=== PATIENT | female | born 2000 | race Caucasian/White ===

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

== ENCOUNTER 2021-06-27 20:01 | Emergency (ER) | payer OTHER, SELFPAY ==
--- NOTE | 2021-06-27 20:04 | ED.GENADUL_ITS ---
Discharge Plan Disposition Patient Disposition: HOME Condition: Improving Discharge Details Clinical Impression: Ovarian cyst Primary Care Provider: Jessica Polanco ED Provider: Brianna Pride Home Meds and New Rx's Prescriptions: Continued Mirena 20 mcg/24 hours (5 yrs) 52 mg intrauterine device 1 device IY ONCE Qty: 1 RF: 0 propranolol 10 mg tablet 10 mg PO BID Qty: 60 RF: 5 bupropion HCl [Wellbutrin XL] 150 mg tablet extended release 24 hr 150 mg PO QAM Qty: 60 RF: 3 spironolactone 50 mg tablet 50 mg PO DAILY Qty: 60 RF: 2 Linzess 72 mcg capsule 72 mcg PO DAILY RF: 0 sertraline [Zoloft] 25 mg Tablet 25 mg PO DAILY RF: 0 Discharge Instructions Instructions: Ovarian Cyst (ED) Additional Instructions: Your ultrasound today showed evidence of a right ovarian cyst. Your lab work today is reassuring and shows no evidence of acute concerning findings. Drink plenty of fluids and get plenty of rest. Alternate tylenol and motrin as needed and directed for pain. Take the oxycodone for pain not relieved with Tylenol or Motrin Take the Zofran as needed and directed for nausea and vomiting. Call [facility] tomorrow morning to schedule a follow-up appointment for reevaluation. Return immediately to the emergency department if you develop any worsening or new concerning symptoms. Stand Alone Forms: Work Release Referrals: [facility] [Provider Group] Discharge Data Discharge Physician: Brianna Pride Medical Decision Making 21-year-old female with a history of appendectomy presents with right lower quadrant abdominal pain and nausea for the past few days. Vitals within normal limits. Patient appears uncomfortable but nontoxic. She has tenderness extending from her right upper down the right lower quadrant. There is no distention, rebound or guarding. Differential diagnosis includes ovarian cyst, UTI, ovarian torsion, viral process, etc. History and presentation does not appear consistent with PID or BV as she denies any change in her normal discharge or any significant suprapubic pain. Patient was offered pelvic exam but states she can follow-up with [facility] for this if symptoms change. Will place an IV, bolus IV fluids, screening labs, urinalysis and attempt to obtain pelvic ultrasound. We will give a small dose of Toradol as she received ibuprofen at home 3.5 hours ago. Ultrasound is available to come in. Urine test negative. Labs reviewed and unremarkable. Normal white blood cell count and electrolytes. Urinalysis negative. Patient reassessed and pain not improved. Will give a dose of morphine and reassess. Pelvic and transvaginal ultrasound notes: IMPRESSION: 5 x 5 by 6 cm cystic structure within the right ovary as described. Despite the size favor this is a benign physiologic follicle. Morphology less suggestive of an endometrioma. Follow-up is recommended to assess resolution. No ovarian torsion. Patient reassessed and she felt much better. She endorsed some nausea and was given a dose of Zofran ODT. Patient advised to follow-up with [facility] for further evaluation and for consideration for repeat ultrasound if indicated Usual and customary return precautions given prior to discharge. Medical Records Medical records reviewed: Yes I reviewed the patient's medical records. Imaging Data Radiologic Study: Radiologist's impression: US Pelvis Complete, Transabdominal and US Pelvis, Transvaginal and US Duplex Artery and Vein, Ovaries, Complete Exam date and time: 06/27/2021 20:47 Age: 21 years old Clinical indication: Abdominal pain; Right lower quadrant; Patient HX: HX ovarian cysts TECHNIQUE: Imaging protocol: Real-time transabdominal and transvaginal pelvic ultrasound (complete) with image documentation. Transvaginal imaging was used for better evaluation of the endometrium, adnexa, and/or cervix. Real-time duplex ultrasound scan of the arterial and venous flow of the ovaries with B-mode, color Doppler flow and spectral waveform analysis. COMPARISON: CT ABDOMEN PELVIS W 09/05/2020 23:24 FINDINGS: Uterus: Normal myometrium and endometrium for age. Right ovary/adnexa: Within the right ovary is a predominantly simple appearing 5 x 5 by 6 cm cystic structure. There is a single peripheral echogenic structure measuring 6 mm. Normal arterial and venous waveforms in the right ovary. Left ovary/adnexa: Ovary is normal. No mass. Normal ovarian blood flow. Intraperitoneal space: Small cul-de-sac free fluid within physiologic limits. Urinary bladder: Normal. Right kidney: No right hydronephrosis. Left kidney: No left hydronephrosis. IMPRESSION: 5 x 5 by 6 cm cystic structure within the right ovary as described. Despite the size favor this is a benign physiologic follicle. Morphology less suggestive of an endometrioma. Follow-up is recommended to assess resolution. No ovarian torsion. Lab Data Lab results reviewed: Yes I reviewed the patient's lab results. Labs: Laboratory Tests Range/Units 06/27/21 06/27/21 06/27/21 20:05 20:30 20:30 WBC (4.4-10.8) 10^3/uL 9.35 RBC (3.93-5.22) 10^6/uL 4.78 Hgb (11.2-15.7) g/dL 13.3 Hct (36.0-46.0) % 42.2 MCV (80-95) fL 88.3 MCH (27.0-33.0) pg 27.8 MCHC (32.0-36.0) % 31.5 L RDW (11.7-14.6) % 12.7 Plt Count (130-400) 10^3/uL 337 MPV (8.0-11.0) fL 10.0 Immature Gran % 0.2 Neutrophils % 60.1 Lymphocytes % 30.5 Monocytes % 7.2 Eosinophils % 1.4 Basophils % 0.6 Nucleated RBC % % 0 Absolute Neutrophils (1.2-6.7) 10^3/uL 5.62 Absolute Lymphocytes (1.2-3.4) 10^3/uL 2.85 Absolute Monocytes (0.1-0.8) 10^3/uL 0.67 Absolute Eosinophils (0.0-0.7) 10^3/uL 0.13 Absolute Basophils (0.0-0.2) 10^3/uL 0.06 Sodium (136-145) mmol/L 139 Potassium (3.5-5.1) mmol/L 3.6 Chloride (98-107) mmol/L 103 Carbon Dioxide (21.0-32.0) mmol/L 27.3 Anion Gap (3-11) mmol/L 8.7 BUN (7-18) mg/dL 10 Creatinine (0.55-1.02) mg/dL 0.6 Estimated GFR/1.73 m2 (mL/min/1.73m2) >= 60.00 Glucose (74-106) mg/dL 77 Calcium (8.5-10.1) mg/dL 8.7 Total Bilirubin (0.2-1.0) mg/dL 0.3 AST (15-37) U/L 16 ALT (14-59) U/L 24 Alkaline Phosphatase (46-116) U/L 85 Total Protein (6.4-8.2) g/dL 7.8 Albumin (3.4-5.0) g/dL 4.3 Lipase (73-393) U/L 113 Urine Color (Yellow) Yellow Urine Clarity (Clear) Clear Urine pH (5-8) 7.0 Ur Specific [place] (1.005-1.025) 1.020 Urine Protein (Negative) mg/dL Negative Urine Ketones (Negative) mg/dL Negative Urine Blood (Negative) Negative Urine Nitrite (Negative) Negative Urine Bilirubin (Negative) Negative Urine Urobilinogen (Up TO 0.2) EU/dL 0.2 Ur Leukocyte Esterase (Negative) Negative Urine Glucose (Negative) mg/dL Negative HPI General Mode of arrival: ambulatory . Date/Time Provider Initiated Documentation: 06/27/21 20:02 . Limitations to Documentation: no limitations . Information obtained by: patient . HPI Narrative: Pt is a 21yo F with a history of appendectomy in August 2020 presents for right lower quadrant abdominal pain and nausea for the past 2 days. She states the pain feels achy and is currently 7/10. Patient states she has had an ovarian cyst in the past and states her pain feels similar to that except for having the nausea and low-grade fever today. She states the pain has been constant but worse with certain positions and movement. She admits to some nausea but denies any vomiting, diarrhea or urinary symptoms. She states she has been having normal bowel movements. She took Tylenol at 6:30 PM and ibuprofen at 5 PM tonight without relief. Related Data Home Medications Medication Instructions Recorded Confirmed levonorgestrel 20 mcg/24 hours (7 1 device IY ONCE #1 each 10/14/18 06/27/21 yrs) 52 mg intrauterine device propranolol 10 mg tablet 10 mg PO BID #60 tab 07/25/20 01/11/21 bupropion HCl 150 mg 24 hr tablet, 150 mg PO QAM #60 tab 02/09/21 extended release spironolactone 50 mg tablet 50 mg PO DAILY #60 tab 06/06/21 06/27/21 Linzess 72 mcg PO DAILY 06/27/21 06/27/21 sertraline [Zoloft] 25 mg PO DAILY 06/27/21 06/27/21 Previous Rx's Medication Instructions Recorded levonorgestrel 20 mcg/24 hours (7 1 device IY ONCE #1 each 10/14/18 yrs) 52 mg intrauterine device propranolol 10 mg tablet 10 mg PO BID #60 tab 07/25/20 bupropion HCl 150 mg 24 hr tablet, 150 mg PO QAM #60 tab 02/09/21 extended release spironolactone 50 mg tablet 50 mg PO DAILY #60 tab 06/06/21 Allergies Allergy/AdvReac Type Severity Reaction Status Date / Time No Known Allergies Allergy Verified 06/27/21 20:18 General CONG: 3 Review of Systems All systems reviewed & are unremarkable except as noted in HPI and below Constitutional Constitutional: Reports as per HPI, Denies chills and Denies fever(s) Eyes Eyes: Denies blurry vision ENT Ears, Nose, Mouth, and Throat: Denies dizziness, Denies sore throat and Denies throat swelling Cardiovascular Cardiovascular: Denies chest pain and Denies dyspnea Respiratory Respiratory: Denies cough and Denies dyspnea Gastrointestinal Gastrointestinal: Reports abdominal pain, Denies diarrhea, Reports nausea and Denies vomiting Genitourinary Genitourinary: Denies hematuria and Denies dysuria Musculoskeletal Musculoskeletal: Denies back pain and Denies numbness Integumentary/Breasts Skin/Breast: Denies lesions and Denies rash Neurologic Neurologic: Denies dizziness, Denies localized weakness and Denies numbness Allergic/Immunologic Allergic/Immunologic: Denies throat swelling PFSH All Active Problems (Updated 06/27/21 @ 22:10 by Brianna Pride DO) Ovarian cyst (Acute) Constipation (Chronic) [facility] Migraine headache with aura (Acute) Insomnia (Acute) Frequent headaches (Acute) Orthostasis (Acute) Contraception (Acute 11/28/15) Mirena IUD inserted 09/03/18 Medical History (Updated 06/27/21 @ 22:10 by Brianna Pride DO) Acne (04/04/15) mod/severe inflammatroy Anxiety and depression Body mass index, pediatric, 5th percentile to less than 85th percentile for age (04/04/15) Chronic constipation Contraception management OCPs, 11/2015 Nexplanon, Nexplanon removed and Mirena inserted 09/03/18 Croup Febrile convulsion X 1 AGE 19 MOS H/O appendicitis Headache Routine child health exam (12/15/12) Syncope [place] [facility] normal Holter monitor likely orthostasis related no follow up necessary Urinary incontinence Surgical History (Updated 06/26/21 @ 16:02 by Amisha Fitch RN) Acute appendicitis (~08/2020) H/O nasal septoplasty (~2020) History of tonsillectomy (~07/2020) Family History (Updated 06/26/21 @ 16:02 by Amisha Fitch RN) Mother Diabetes Hypertension Depression Father Healthy adult Other Personal history of malignant neoplasm MGM- skin cancer Sister Diabetes Asthma Anxiety Depression Social History (Updated 06/26/21 @ 12:45 by Marguerite Christina) Smoking/Tobacco Use Status: Never Smoking risk assessment performed?: Yes Alcohol Intake: never Drug use: Never Substance use type: does not use Adopted: No Caregiver/Support person: No Foster care: No Housing: apartment Pets and animals: Yes Pets and animals: cat(s) and dog(s) Do you think of yourself as: straight/heterosexual Current gender identity: female Do you feel safe in your relationship?: Yes Female Reproductive History Menstrual control method: progestin IUCD History History 0 Para Hx # Term Pregnancies Multiple births Hx # Pregnancies Ectopic pregnancies AB induced Hx Number of Living Children AB spontaneous Exam Const General: cooperative, healthy appearing and no acute distress HENMT Head: normal to inspection Face and sinus: normal facial exam Eyes General: appearance normal, both eyes and all related structures EOM: EOM intact bilaterally Neck Neck: normal visual inspection and No submandibular swelling Lymphatic: no lymphadenopathy noted Chest Chest: normal inspection of the chest and no tenderness Resp Effort & Inspection: normal respiratory effort and able to speak in complete sentences Auscultation: clear to auscultation bilaterally Cardio Rate: regular rate Rhythm: regular rhythm GI Inspection: normal to inspection Palpation: soft, not firm, not rigid and tender in the RLQ and in the RUQ Auscultation: hypoactive bowel sounds Back/Spine/Pelvis Back: no CVA tenderness Skin General skin exam: no rashes or lesions noted Neuro General: patient alert, patient awake and patient oriented x3 Cognition: normal cognition Speech: speech normal Motor: muscle tone normal throughout Sensory Exam: no sensory deficits noted Extrem General: normal to inspection, full ROM, capillary refill normal, no calf tenderness bilaterally and no edema Psych Appearance: grossly normal Mental Status: mental status grossly normal Speech and Movement: speech and movement normal Affect: normal affect
[2021-06-27 20:10] VITALS: BP 122/71; PULSE 85; RESP 18; TEMP 37.1; O2SAT 99
[2021-06-27 20:18] LABS: Bilirubin Negative (Negative); Blood Negative (Negative); Clarity Clear (Clear); Glucose Negative (Negative); Ketones Negative (Negative); Leukocyte Esterase Negative (Negative); Nitrite Negative (Negative); Urobilinogen 0.2 EU/dL (Up TO 0.2)
--- NOTE | 2021-06-27 20:30 | DI.US_ITS ---
Exam(s) US PELVIS TRANSVAGINAL EXAM: US PELVIS TRANSVAGINAL CLINICAL HISTORY: RLQ abd pain, r/o ovarian torsion TECHNIQUE: Transabdominal and transvaginal imaging was performed using standard protocol. COMPARISON: CT CT ABDOMEN PELVIS W from 09/05/2020 FINDINGS: KIDNEYS: Kidneys are symmetric in size. No evidence of renal calculi. No evidence of hydronephrosis. No renal mass or cyst identified. UTERUS: retroverted. 6.2 by 3.5 x 4.8 cm. Endometrium: IUD present in the position. Myometrium: Unremarkable. Cervix: Unremarkable. OVARIES: Right: Cyst or mass: 5 centimeter cystic lesion with some internal debris which could represent a hem orrhagic cyst. This was not seen on previous CT. There is no evidence of torsion. Left: Cyst or mass: None. DOPPLER: Color: Symmetric and uniform flow to both ovaries. No hyperemia. Duplex: Normal ovarian arterial waveforms visualized. CUL-DE-SAC: Free fluid: None. IMPRESSION: 1. Normal-appearing uterus with IUD in place. 2. 5 centimeter hemorrhagic cyst of the right ovary. No evidence of torsion. DATA REPOSITORY:
[2021-06-27] MEDS: Normal Saline 1,000 ML 1000 ML IV (20:40)
[2021-06-27 20:42] LABS: Abs Immature Grans 0.02 10^3/uL (0.0-0.06); Absolute Basophil Count 0.06 10^3/uL (0.0-0.2); Absolute Eosinophil Count 0.13 10^3/uL (0.0-0.7); Absolute Lymphocyte Count 2.85 10^3/uL (1.2-3.4); Absolute Monocyte Count 0.67 10^3/uL (0.1-0.8); Absolute Neutrophil Count 5.62 10^3/uL (1.2-6.7); Basophils % 0.6; Eosinophils % 1.4; HCT 42.2 % (36.0-46.0); HGB 13.3 g/dL (11.2-15.7); Immature Grans % 0.2; Lymphocytes % 30.5; MCH 27.8 pg (27.0-33.0); MCHC 31.5 % (32.0-36.0); MCV 88.3 fL (80-95); Monocytes % 7.2; Neutrophils % 60.1; Nucleated RBC 0 %; Platelet Count 337 10^3/uL (130-400); RBC 4.78 10^6/uL (3.93-5.22); RDW 12.7 % (11.7-14.6); RDW-SD 41.3 fL; WBC 9.35 10^3/uL (4.4-10.8)
[2021-06-27] MEDS: Ondansetron 4 MG/2 ML VIAL IVP (20:42)
[2021-06-27] MEDS: Ketorolac 15 MG/ML VIAL IVP (20:43)
[2021-06-27 20:45] VITALS: BP 116/74; PULSE 66; RESP 16; O2SAT 99
[2021-06-27 20:56] LABS: ALT 24 U/L (14-59); AST 16 U/L (15-37); Albumin 4.3 g/dL (3.4-5.0); Alkaline Phosphatase 85 U/L (46-116); Anion Gap 8.7 mmol/L (3-11); BUN 10 mg/dL (7-18); Bilirubin, Total 0.3 mg/dL (0.2-1.0); CO2 27.3 mmol/L (21.0-32.0); CREATININE 0.6 mg/dL (0.55-1.02); Calcium 8.7 mg/dL (8.5-10.1); Chloride 103 mmol/L (98-107); Glucose 77 mg/dL (74-106); Lipase 113 U/L (73-393); Potassium 3.6 mmol/L (3.5-5.1); Sodium 139 mmol/L (136-145); Total Protein 7.8 g/dL (6.4-8.2)
[2021-06-27 21:42] VITALS: BP 107/65; PULSE 81; RESP 16; O2SAT 99
--- NOTE | 2021-06-27 21:57 | DI.VRAD_ITS ---
PROCEDURE INFORMATION: Exam: US Pelvis Complete, Transabdominal and US Pelvis, Transvaginal and US Duplex Artery and Vein, Ovaries, Complete Exam date and time: 06/27/2021 20:47 Age: 21 years old Clinical indication: Abdominal pain; Right lower quadrant; Patient HX: HX ovarian cysts TECHNIQUE: Imaging protocol: Real-time transabdominal and transvaginal pelvic ultrasound (complete) with image documentation. Transvaginal imaging was used for better evaluation of the endometrium, adnexa, and/or cervix. Real-time duplex ultrasound scan of the arterial and venous flow of the ovaries with B-mode, color Doppler flow and spectral waveform analysis. COMPARISON: CT ABDOMEN PELVIS W 09/05/2020 23:24 FINDINGS: Uterus: Normal myometrium and endometrium for age. Right ovary/adnexa: Within the right ovary is a predominantly simple appearing 5 x 5 by 6 cm cystic structure. There is a single peripheral echogenic structure measuring 6 mm. Normal arterial and venous waveforms in the right ovary. Left ovary/adnexa: Ovary is normal. No mass. Normal ovarian blood flow. Intraperitoneal space: Small cul-de-sac free fluid within physiologic limits. Urinary bladder: Normal. Right kidney: No right hydronephrosis. Left kidney: No left hydronephrosis. IMPRESSION: 5 x 5 by 6 cm cystic structure within the right ovary as described. Despite the size favor this is a benign physiologic follicle. Morphology less suggestive of an endometrioma. Follow-up is recommended to assess resolution. No ovarian torsion. Dictated and Authenticated by: Melanie Rogers MD. Ordering:MARLENE Reed MD
[2021-06-27 22:22] VITALS: BP 106/54; PULSE 78; RESP 18; O2SAT 98
[2021-06-27] MEDS: Ondansetron O.D.T. 4 MG TABEF PO (22:25)
[2021-06-27] MEDS: oxyCODONE 5 MG TAB 10 MG PO (22:37)
[2021-06-27] MEDS: Ondansetron O.D.T. 4 MG TABEF, 3 TABS/BTL PO (22:38)
== END 2021-06-27 22:40 | disposition home or self-care (01) ==
PROVIDERS: Emergency Provider Physician Assistant; PCP Nurse Practitioner Family
DX: N83.201 Unspecified ovarian cyst, right side (principal); R11.0 Nausea; R50.9 Fever, unspecified
CPT/HCPCS: 36415; 80053; 81025; 83690; 96361; 96374; 96375; 99284; 76830; 76856; 81003; 85025; J1885; J2405

== ENCOUNTER 2021-11-13 16:52 | Outpatient (REF) | payer OTHER, SELFPAY ==
[2021-11-15 14:21] LABS: Chlamydia Result Negative (Negative); GC Result Negative (Negative)
== END 2021-11-13 16:53 | disposition home or self-care (01) ==
LOC: LBN 16:52
PROVIDERS: PCP Nurse Practitioner Family; Visit Provider Obstetrics & Gynecology Gynecology
DX: Z11.3 Encounter for screening for infections with a predominantly sexual mode of transmission (principal)
CPT/HCPCS: 87491; 87591

== ENCOUNTER 2022-07-10 11:52 | Outpatient (CLI) | payer OTHER, SELFPAY ==
[2022-07-10 13:26] LABS: Anion Gap 7.4 mmol/L (3-11); BUN 12 mg/dL (7-18); CO2 25.6 mmol/L (21.0-32.0); CREATININE 0.7 mg/dL (0.55-1.02); Calcium 9.2 mg/dL (8.5-10.1); Chloride 105 mmol/L (98-107); Estimated GFR 126.11 (mL/min/1.73m2); Glucose 102 mg/dL (74-106); Potassium 4.1 mmol/L (3.5-5.1); Sodium 138 mmol/L (136-145)
[2022-07-11 09:58] LABS: Hepatitis C Ab w Rflx HCV PCR Negative (Negative)
[2022-07-11 10:13] LABS: HIV-1/2 Ag & Ab Screen Negative (Negative)
== END 2022-07-10 11:53 | disposition home or self-care (01) ==
LOC: LBO 11:53
PROVIDERS: PCP Nurse Practitioner Family; Visit Provider Nurse Practitioner Family
DX: F41.8 Other specified anxiety disorders (principal); Z13.1 Encounter for screening for diabetes mellitus; Z11.4 Encounter for screening for human immunodeficiency virus [HIV]; Z11.59 Encounter for screening for other viral diseases; Z79.899 Other long term (current) drug therapy
CPT/HCPCS: 36415; 80048; 86803; 87389

== ENCOUNTER 2022-09-05 04:23 | Outpatient (CLI) | payer OTHER, SELFPAY ==
[2022-09-05 16:57] LABS: TSH (W/Ref FT4) 1.09 uIU/mL (0.36-3.74)
== END 2022-09-05 04:24 | disposition home or self-care (01) ==
LOC: LBO 04:23
PROVIDERS: PCP Nurse Practitioner Family; Visit Provider Nurse Practitioner Family
DX: R63.5 Abnormal weight gain (principal)
CPT/HCPCS: 36415; 84443

== ENCOUNTER 2023-03-14 13:48 | Outpatient (REF) | payer OTHER, SELFPAY ==
--- OUTSIDE RECORDS SUMMARY | 2023-03-14 13:52 | XMS_ITS | Continuity of Care Document ---
Author Name Unknown Address [address] [place] [address] Phone Organization [facility] Address [address] [place] [address] Phone Care Team Providers Care Transportation Project Manager Name Role Phone PCP, of Choice Primary Care Provider Unavailabl e Bola García Attending Provider Allergies, Adverse Reactions, Alerts No known allergies. Medications Medication Status Dose Units Route Directions Qty Days St art Date End Date Instructions Escitalopram Oxalate Active 10 MG PO TWICE A DAY July 28, 2020 11:48am Azithromycin (Zithromax Z-Wilfredo) 250 mg Tablet Active 0 .ROUTE .COMPLEX 1 5 July 28, 2020 12:04pm take 500 mg by mouth today (day 1), then 250 mg for 4 days (days 2-5) Ondansetron Active 8 MG PO THREE TI MES A DAY 12 July 28, 2020 12:04pm Hydrocodone-Ac etaminophen Active 10 - 15 ML PO Q6H 473 July 28, 2020 12:04pm Problems Active Problems Medical Problem Onset Date Status Recurrent streptococcal tonsillitis Active Tonsillar hypertrophy Active Nasal turbinate hypertrophy Acti ve Snoring Active Chronic nasal congestion Active Deviated nasal septum Active Relevant Diagnostic Tests and/or Laboratory Data Laboratory Results Test Date/Time Result Interpretation Reference Range Result Comment Performing Site SARS-Co V-2 RNA (RT-PCR ) July 26, 2020 11:00am Negative Negative This test is onl y for use under the Food and Drug Administration's (FDA) Emergency Use Authorization (EUA). This test has not been FDA cleared or approved.Not for screening.Nasal swabs are considered an acceptable sample type, however performance with this type has not been established.Negati ve results do not preclude infection and should not be used as the sole basis of treatment or other patient management decisions. Negative results must be combined with clinical observations, patient history, and/or epidemiological information.Fact sheets for providers can be found at: [employer]/8245 85/downloadFact sheets for patients can be found at: [employer]/4200 87/download [facility], [address] [place] [address] Advance Directives Advance Directive Response Recorded Date/ Time Does patient have an Advanced Directive? No June 22, 2020 1:39pm Do we have a copy on file here at [facility]? No June 22, 2020 1:39pm Pt has a Living Will? No June 1:39pm Do we have a copy on file here at [facility]? No June 22, 2020 1:39pm Pt has a Power of Box Fabricator? No Lavell goodman 2020 1:39pm Do we have a copy on file here at [facility]? No June 22, 2020 1:39pm Chief Complaint and Reason for Visit Chief Complaint New Patient Contact with and (suspected) exposure to COVID-19 Acute recurrent streptococcal tonsillitis,Deviated Reason for Visit Chronic nasal conges tion Deviated nasal septum Nasal turbinate hypertrophy Recurrent streptococcal tonsillitis Snoring Tonsillar hypertrophy Encounters Encounter Location(s) Arrival/Admit Date Discharge /Depart Date Provider(s) Departed Physician[facility]Provi l[facility] 1:39pm June 22, 2020 2:24pm Bola García DO Departed Clinical [facility] July 26, 2020 7:43am July 26, 2020 7:44am Bola García DO [facility] July 28, 2020 11:21am July 28, 2020 3:54pm Bola García DO Recent Diagnosis Onset Date Chronic nasal congestion Deviated nasal septum Nasal turbinate hypertrophy Recurrent streptococcal tonsillitis Snoring Tonsillar hypertrophy Assessments Diagnosis Onset Date Resolution Status Chronic nasal congestion acu te Deviated nasal septum acute Nasal turbinate hypertrophy acute Recurrent streptococcal tonsillitis acute Snoring acute Tonsillar hypertrophy acute Functional Status No Functional Status information available Goals Goals may be documented in an alternate section. Mental Status No Mental Status Information Available Medical Equipment No Medical Equipment Information available Insurance Providers Guarantor FADUMO Miguelangel LOCO Address [address] [facility] [address] [facility] [address] Contact Info. Home Phone: Payer Policy Id Coverage Id Subscriber's Name Subscriber Id Effective Date Expiration Date GARCÍA [id number] FADUMO ADAN [id number] SELF PAY Self N/A Plan of Treatment Future Tests Future scheduled test information is unavailable Pending Tests Pending diagnostic test information is unavailable Future Visits Future appointment information is unavailable Referrals to Other Providers Referral information is unavailable Future Procedures Future procedure information is unavailable Future Medications Future medication information is unavailable Patient Instructions COVID 19 General Instruction s- decrease the spread of coronavirus ([facility]) Social History Smoking Status Status Date of Observation Never smoked tobacco (finding) July 28, 2020 11:42am Observation Status Observation Response Date of Response Alcohol Use No July 28 11:42am Substance/Street Drug Use No 2020 11:42am Smoking Status Never smoker July 28 11:42am Assigned Sex Female Vital Signs Vital Reading Result Reference Range Collection Date/Time Height 65 [in_i] June 22 1:48pm Weight 61.23 kg June 22 1:48pm Body Temperature 97.5 [degF] 97.6-99.6 June 1:48pm Heart Rate 62 /min 60-90 June 22 1:48pm Respiratory rate 16 /min 12-24 June 1:48pm BP Systolic 104 mm[Hg] 100-140 June 22 1:48pm BP Diastolic 74 mm[Hg] 50-85 June 22 1:48pm BMI (Body Mass Index) 22.4 kg/m2 2020 1:48pm Height 65 [in_i] July 13, 2 021 10:31am Weight 65.77 kg July 13, 2 021 10:31am Body Temperature 98.0 [degF] 97.6-99.6 July 282020 3:43pm Heart Rate 83 /min 60-90 July 28, 2020 3:43pm Respiratory rate 16 /min 12-24 July 282020 3:43pm Oxygen saturation by Pulse oximetry 98 % 95-100 July 28, 2020 3:43pm BP Systolic 130 mm[Hg] 100-140 July 28, 2020 3:43pm BP Diastolic 76 mm[Hg] 50-85 July 28, 2020 3:43pm
--- OUTSIDE RECORDS SUMMARY | 2023-03-14 13:52 | XMS_ITS | Continuity of Care Document ---
Author Name Unknown Address [address] [place] [address] Phone Organization [facility] Address [address] [place] [address] Phone Care Team Providers Care Rubber Tile Floor Layer Name Role Phone PCP, of Choice Primary Care Provider Unavailabl e Bola García Attending Provider Allergies, Adverse Reactions, Alerts No known allergies. Medications Medication Status Dose Units Route Directions Qty Days St art Date End Date Instructions Escitalopram Oxalate Active 10 MG PO TWICE A DAY 2020 12:48pm Azithromycin (Zithromax Z-Wilfredo) 250 mg Tablet Discontin ued 0 .ROUTE .COMPLEX 1 5 2020 1:04pm Februa ry 2020 1:01am take 500 mg by mouth today (day 1), then 250 mg for 4 days (days 2-5) Ondansetron Discontin ued 8 MG PO THREE TIMES A DAY 12 2020 1:04pm October 25, 2020 3:26pm Hydrocodone-A cetaminophen Discontin ued 10 - 15 ML PO Q6H 473 2020 1:04pm October 25, 2020 3:26pm Methylprednis olone Discontin ued 0 PO .COMPLEX y 2020 11:33am October 25, 2020 3:26pm orally per package directions Problems Active Problems Medical Problem Onset Date Status Snoring Active Inactive/Resolved Problems Medical Problem Onset Date Status Recurrent streptococcal tonsillitis Resolved Tonsillar hypertrophy Resolved Nasal turbinate hypertrophy Reso lved Chronic nasal congestion Resolve d Deviated nasal septum Resolved Relevant Diagnostic Tests and/or Laboratory Data Laboratory Results Test Date/Time Result Interpretation Reference Range Result Comment Performing Site SARS-Co V-2 RNA (RT-PCR ) July 26, 2020 12:00pm Negative Negative This test is onl y [...] sheets for providers can be found at: [employer].gov/CashEdge/3666 85/downloadFact sheets for patients can be found at: [employer].gov/CashEdge/4955 87/download MAIN LAB, [address] [place] [address] Advance Directives Advance Directive Response Recorded Date/ Time Does patient have an Advanced Directive? No June 22, 2020 2:39pm Do we have a copy on file here at [facility]? No June 22, 2020 2:39pm Pt has a Living Will? No June 2:39pm Do we have a copy on file here at [facility]? No June 22, 2020 2:39pm Pt has a Power of Naval Aircrewman? No Lavell goodman 2020 2:39pm Do we have a copy on file here at [facility]? No June 22, 2020 2:39pm Chief Complaint and Reason for Visit Chief Complaint New Patient Contact with and (suspected) exposure to COVID-19 Acute recurrent streptococcal tonsillitis,Deviated Post Operative Visit Post Operative Visit Reason for Visit Snoring Chronic nasal congestion Deviated nasal septum Nasal turbinate hypertrophy Recurrent streptococcal tonsillitis Tonsillar hypertrophy Snoring Chronic nasal congestion Deviated nasal septum Nasal turbinate hypertrophy Recurrent streptococcal tonsillitis Tonsillar hypertrophy Snoring Chronic nasal congestion Deviated nasal septum Nasal turbinate hypertrophy Recurrent streptococcal tonsillitis Tonsillar hypertrophy Encounters Encounter Location(s) Arrival/Admit Date Discharge /Depart Date Provider(s) Departed Physician/Provi lisa Office Visit [facility] ENT June 22, 2020 2:39pm June 22, 2020 3:24pm Bola García DO [facility] July 26, 2020 8:43am July 26, 2020 8:44am Bola García DO Registered Outpatient [facility] ENT July 28, 2020 12:21pm July 28, 2020 4:54pm Bola García DO Departed Physician/Provi lisa Office Visit [facility] ENT August 03, 2020 4:13pm August 03, 2020 4:39pm Bola García DO Departed Physician/Provi lisa Office Visit [facility] ENT October 25, 2020 3:21pm October 25, 2020 3:47pm Bola García DO Recent Diagnosis Onset Date Snoring Chronic nasal congestion Deviated nasal septum Nasal turbinate hypertrophy Recurrent streptococcal tonsillitis Tonsillar hypertrophy Snoring Chronic nasal congestion Deviated nasal septum Nasal turbinate hypertrophy Recurrent streptococcal tonsillitis Tonsillar hypertrophy Snoring Chronic nasal congestion Deviated nasal septum Nasal turbinate hypertrophy Recurrent streptococcal tonsillitis Tonsillar hypertrophy Assessments Diagnosis Onset Date Resolution Status Snoring acute Chronic nasal congestion res olved Deviated nasal septum resolv ed Nasal turbinate hypertrophy resolved Recurrent streptococcal tonsillitis resolved Tonsillar hypertrophy resolv ed Snoring acute Chronic nasal congestion res olved Deviated nasal septum resolv ed Nasal turbinate hypertrophy resolved Recurrent streptococcal tonsillitis resolved Tonsillar hypertrophy resolv ed Snoring acute Chronic nasal congestion res olved Deviated nasal septum resolv ed Nasal turbinate hypertrophy resolved Recurrent streptococcal tonsillitis resolved Tonsillar hypertrophy resolv ed Functional Status No Functional Status information available Goals Goals may be documented in an alternate section. Mental Status No Mental Status Information Available Medical Equipment No Medical Equipment Information available Insurance Providers Guarantor FADUMO ADAN Address [address] [facility] [address] Contact Info. Home Phone: Payer Policy Id Coverage Id Subscriber's Name Subscriber Id Effective Date Expiration Date GARCÍA [id number] FADUMO ADAN [id number] SELF PAY Self N/A Plan of Treatment [...] Date of Observation Never smoked tobacco (finding) October 25, 2020 3:29pm Observation Status Observation Response Date of Response Alcohol Use No July 28 12:42pm Substance/Street Drug Use No 2020 12:42pm Smoking Status Never smoker October 25, 2020 3 :29pm Assigned Sex Female Vital Signs Vital Reading Result Reference Range Collection Date/Time Height 65 [in_i] June 22 1:48pm Weight 61.23 kg June 22 1:48pm Body Temperature 97.5 [degF] 97.6-99.6 June 1:48pm Heart Rate 62 /min 60-90 June 22 1:48pm Respiratory rate 16 /min 06-08 1:48pm BP Systolic 104 mm[Hg] 100-140 June 22 1:48pm BP Diastolic 74 mm[Hg] 50-85 June 22 1:48pm BMI (Body Mass Index) 22.4 kg/m2 2020 1:48pm Height 65 [in_i] July 13 10:31am Weight 65.77 kg July 13 10:31am Body Temperature 98.0 [degF] 97.6-99.6 July 282020 3:43pm Heart Rate 83 /min 60-90 July 28, 2020 3:43pm Respiratory rate 16 /min -24 July 282020 3:43pm Oxygen saturation by Pulse oximetry 98 % 95-100 July 28, 2020 3:43pm BP Systolic 130 mm[Hg] 100-140 July 28, 2020 3:43pm BP Diastolic 76 mm[Hg] 50-85 July 28, 2020 3:43pm Height 65 [in_i] August 03, 2020 3:19pm Weight 68.03 kg August 03, 2020 3:19pm Heart Rate 106 /min 60-90 August 03, 2020 3:19pm Oxygen saturation by Pulse oximetry 97 % 95-100 August 03, 2020 3:19pm BP Systolic 112 mm[Hg] 100-140 August 03, 2020 3:19pm BP Diastolic 78 mm[Hg] 50-85 August 03, 2020 3:19pm BMI (Body Mass Index) 25.0 kg/m2 2020 3:19pm Height 65 [in_i] October 25, 2020 3:27pm Weight 65.77 kg October 25, 2020 3:27pm Body Temperature 98.5 [degF] 97.6-99.6 October 25, 2 021 3:27pm Heart Rate 84 /min 60-90 October 25, 2020 3:27pm Respiratory rate 16 /min -24 October 25, 2 021 3:27pm BP Systolic 110 mm[Hg] 100-140 October 25, 2020 3:27pm BP Diastolic 72 mm[Hg] 50-85 October 25, 2020 3:27pm BMI (Body Mass Index) 24.1 kg/m2 October 252020 3:27pm
--- OUTSIDE RECORDS SUMMARY | 2023-03-14 13:52 | XMS_ITS | Continuity of Care Document ---
Author Name Unknown Address [address] [place] [address] Phone Organization [facility] Address [address] [place] [address] Phone Care Team Providers Care Web Merchandiser Name Role Phone PCP, of Choice Primary Care Provider Unavailabl e Bola García Attending Provider Allergies, Adverse Reactions, Alerts No known allergies. Medications No known medications. Problems Active Problems Medical Problem Onset Date [...] sheets for providers can be found at: fda.gov/media/5762 85/downloadFact sheets for patients can be found at: [employer].gov/media/6958 87/download [facility], [address] [place] [address] Advance Directives Advance Directive Response Recorded Date/ Time Does patient have an Advanced Directive? No June 22, 2020 1:39pm Do we have a copy on file here at [facility]? No June 22, 2020 1:39pm Pt has a Living Will? No June 1:39pm Do we have a copy on file here at [facility]? No June 22, 2020 1:39pm Pt has a Power of Application Support? No Lavell goodman 2020 1:39pm Do we have a copy on file here at [facility]? No June 22, 2020 1:39pm Chief Complaint and Reason for Visit Chief Complaint New Patient Contact with and (suspected) exposure to COVID-19 Reason for Visit Chronic nasal conges tion Deviated nasal septum Nasal turbinate hypertrophy Recurrent streptococcal tonsillitis Snoring Tonsillar hypertrophy Encounters Encounter Location(s) Arrival/Admit Date Discharge/Depart Date Provider(s) Departed Physician/Prov ider Office Visit [facility] June 22, 2020 1:39pm June 22, 2020 2:24pm Bola García DO Departed Clinical [facility] July 26, 2020 7:43am July 26, 2020 7:44am Bola García DO Recent Diagnosis Onset Date [...] Insurance Providers Guarantor FADUMO ADAN Address [address] [facility] [address] Contact Info. Home Phone: Payer Policy Id Coverage Id Subscriber's Name Subscriber Id Effective Date [facility] Date [facility] [id number] FADUMO ADAN [id number] SELF PAY Self N/A Social History Smoking Status Status Date of Observation Never smoked tobacco (finding) July 18, 2020 10:18am Observation Status Observation Response Date of Response Alcohol Use No July 18 10:18am Substance/Street Drug Use No 2020 10:18am Smoking Status Never smoker July 18 10:18am Assigned Sex Female Vital Signs Vital Reading [...] 1:48pm BMI (Body Mass Index) 22.4 kg/m2 Junmarisa 2020 1:48pm
--- OUTSIDE RECORDS SUMMARY | 2023-03-14 13:52 | XMS_ITS | Continuity of Care Document ---
Author Name Unknown Address [address] [place] [address] Phone Organization [facility] Address [address] [place] [address] Phone Care Team Providers Care Concaver Name Role Phone PCP, of Choice Primary Care Provider Unavailabl e Bola García Attending Provider Allergies, Adverse Reactions, Alerts No known allergies. Medications Medication Status Dose Units Route Directions Qty Days St art Date End Date Instructions Escitalopram Oxalate Active 10 MG PO TWICE A DAY 2020 11:48am Azithromycin (Zithromax Z-Wilfredo) 250 mg Tablet Discontin ued 0 .ROUTE .COMPLEX 1 5 2020 12:04pm Februa ry 2020 12:01a m take 500 mg by mouth today (day 1), then 250 mg for 4 days (days 2-5) Ondansetron Active 8 MG PO THREE TI MES A DAY 12 2020 12:04pm Hydrocodone-A cetaminophen Active 10 - 15 ML PO Q6H 473 2020 12:04pm Methylprednis olone Active 0 PO .COMPLEX 21 Februar y 15th, 2021 10:33am orally per package directions Problems Active Problems [...] sheets for providers can be found at: [employer].gov/inFreeDA/1362 85/downloadFact sheets for patients can be found at: [employer]Data Elite/inFreeDA/1368 87/download [facility], [address] [place] [address] Advance Directives Advance Directive Response Recorded Date/ Time Does patient have an Advanced Directive? No June 22, 2020 1:39pm Do we have a copy on file here at [facility]? No June 22, 2020 1:39pm Pt has a Living Will? No June 1:39pm Do we have a copy on file here at [facility]? No June 22, 2020 1:39pm Pt has a Power of Repairer Pump? Ofelia goodman 2020 1:39pm Do we have a copy on file here at [facility]? No June 22, 2020 1:39pm Chief Complaint and Reason for Visit Chief Complaint New Patient Contact with and (suspected) exposure to COVID-19 Acute recurrent streptococcal tonsillitis,Deviated Post Operative Visit Reason for Visit Chronic nasal conges tion Deviated nasal septum Nasal turbinate hypertrophy Recurrent streptococcal tonsillitis Snoring Tonsillar hypertrophy Chronic nasal congestion Deviated nasal septum Nasal turbinate hypertrophy Recurrent streptococcal tonsillitis Snoring Tonsillar hypertrophy Encounters Encounter Location(s) Arrival/Admit Date Discharge /Depart Date Provider(s) Departed Physician/Provi lisa Office Visit [facility] June 22, 2020 1:39pm June 22, 2020 2:24pm Bola García DO Departed Clinical [facility] July 26, 2020 7:43am July 26, 2020 7:44am Bola García DO Registered Outpatient [facility] E[facility] July 28, 2020 11:21am July 28, 2020 3:54pm Bola García DO Departed Physician/Provi lisa Office Visit [facility] ENT August 03, 2020 3:13pm August 03, 2020 3:39pm Bola García DO Recent Diagnosis Onset Date Chronic nasal congestion Deviated nasal septum Nasal turbinate hypertrophy Recurrent streptococcal tonsillitis Snoring Tonsillar hypertrophy Chronic nasal congestion Deviated nasal septum Nasal turbinate hypertrophy Recurrent streptococcal tonsillitis Snoring Tonsillar hypertrophy Assessments Diagnosis Onset Date Resolution Status Chronic nasal congestion acu te Deviated nasal septum acute Nasal turbinate hypertrophy acute Recurrent streptococcal tonsillitis acute Snoring acute Tonsillar hypertrophy acute Chronic nasal congestion acu te Deviated nasal septum acute Nasal turbinate hypertrophy acute Recurrent streptococcal tonsillitis acute Snoring acute Tonsillar hypertrophy acute Functional Status No Functional Status information available Goals Goals may be documented in an alternate section. Mental Status No Mental Status Information Available Medical Equipment No Medical Equipment Information available Insurance Providers Guarantor FADUMO ADAN Address [address] [place] [address] Contact Info. Home Phone: Payer Policy Id Coverage Id Subscriber's Name Subscriber Id Effective Date Ex[facility] Date [id number] FADUOM ADAN [id number] SELF PAY Self N/A Plan of Treatment [...] 11:42am Smoking Status Never smoker July 28 021 11:42am Assigned Sex Female Vital Signs Vital Reading Result Reference Range Collection Date/Time Height 65 [in_i] June 22 1:48pm Weight 61.23 kg June 22 1:48pm Body Temperature 97.5 [degF] 97.6-99.6 June 1:48pm Heart Rate 62 /min 60-90 June 22 1:48pm Respiratory rate 16 /min 12-June 1:48pm BP Systolic 104 mm[Hg] 100-140 June 22 1:48pm BP Diastolic 74 mm[Hg] 50-85 June 22 1:48pm BMI (Body Mass Index) 22.4 kg/m2 2020 1:48pm Height 65 [in_i] July 13, 021 10:31am Weight 65.77 kg July 13, 021 10:31am Body Temperature 98.0 [degF] 97.6-99.6 [...]
--- OUTSIDE RECORDS SUMMARY | 2023-03-14 13:52 | XMS_ITS | Continuity of Care Document ---
Author Name Unknown Address [address] [place] [address] Phone Organization Address [address] [place] [address] Phone Care Team Providers Care Women'S Studies Lecturer Name Role Phone PCP, of Choice Primary Care Provider Unavailabl e Bola García Attending Provider [phone] Allergies, Adverse Reactions, Alerts No known allergies. [...] sheets for providers can be found at: [employer].gov/Allworx/6604 85/downloadFact sheets for patients can be found at: [employer].gov/Allworx/3241 87/download MAIN LAB, [address] [place] [address] Advance Directives Advance Directive Response Recorded Date/ Time Does patient have an Advanced Directive? No June 22, 2020 2:39pm Do we have a copy on file here at [facility]? No June 22, 2020 2:39pm Pt has a Living Will? No June 2:39pm Do we have a copy on file here at [facility]? No June 22, 2020 2:39pm Pt has a Power of Safety Equipment Tester? No Lavell goodman 2020 2:39pm Do we [...] Date Provider(s) Departed Physician/Provi lisa Office Visit [facility] ENT June 22, 2020 2:39pm June 22, 2020 3:24pm Bola García DO [facility] July 26, 2020 8:43am July 26, 2020 8:44am Bola García DO Registered Outpatient [facility] ENT July 28, 2020 12:21pm July 28, 2020 4:54pm Bola García DO Departed Physician/Provi lisa Office Visit [facility] ENT August 03, 2020 4:13pm August 03, 2020 4:39pm Bola García DO Departed Physician/Provi lisa Office Visit [facility] ENT October 25, 2020 3:21pm October [...] Insurance Providers Guarantor FADUMO ADAN Address [address] [facility] [address] Contact Info. Home Phone: Payer Policy Id Coverage Id Subscriber's Name Subscriber Id Effective Date Expiration Date GARCÍA [id number] FADUMO ADAN [id number] SELF PAY Self N/A Plan of Treatment [...]
--- OUTSIDE RECORDS SUMMARY | 2023-03-14 13:52 | XMS_ITS | Continuity of Care Document ---
Author Name Unknown Address [address] [place] [address] Phone Organization [facility] Address [address] [place] [address] Phone Support Name Relationship Address Phone LOCO GU Mother Unknown [phone] Out of Town, Provider Primary Care Provider Unknown Unavailable Bola García Attending Provider [facility] [place] [address] [place] [address] Allergies, Adverse Reactions, Alerts No known allergies. Medications No known medications. Problems Active Problems Medical Problem Onset Date Status Recurrent streptococcal tonsillitis Active Tonsillar hypertrophy Active Nasal turbinate hypertrophy Acti ve Snoring Active Chronic nasal congestion Active Deviated nasal septum Active Advance Directives Advance Directive Response Recorded Date/ Time Does patient have an Advanced Directive? No June 22, 2020 1:39pm Do we have a copy on file here at [facility]? No June 22, 2020 1:39pm Pt has a Living Will? No June 1:39pm Do we have a copy on file here at [facility]? No June 22, 2020 1:39pm Pt has a Power of Beauty Therapist? No Lavell goodman 2020 1:39pm Do we have a copy on file here at [facility]? No June 22, 2020 1:39pm Chief Complaint and Reason for Visit Chief Complaint New Patient Reason for Visit Chronic nasal conges tion Deviated nasal septum Nasal turbinate hypertrophy Recurrent streptococcal tonsillitis Snoring Tonsillar hypertrophy Encounters Encounter Location(s) Arrival/Admit Date Discharge/Depart Date Provider(s) Departed Physician/Prov ider Office [facility] June 22, 2020 1:39pm June 22, 2020 2:24pm Bola García DO Recent Diagnosis Onset Date [...] Equipment Information available Insurance Providers Guarantor FADUMO LOCO Address [address] [facility] [address] Contact Info. Home Phone: Payer Policy Id Coverage Id Subscriber's Name Subscriber Id Effective Date Expiration Date GARCÍA [id number] FADUMO ADAN [id number] SELF PAY Self N/A Social History Smoking Status Status Date of Observation Never smoked tobacco (finding) June 222020 1:43pm Observation Status Observation Response Date of Response Smoking Status Never smoker June 22 1:43pm Assigned Sex Female Vital Signs Vital Reading [...]
== END 2023-03-14 13:49 | disposition home or self-care (01) ==
LOC: NCHCN 13:48
PROVIDERS: PCP Nurse Practitioner Family; Visit Provider Physician Assistant Medical
DX: N89.8 Other specified noninflammatory disorders of vagina (principal)
CPT/HCPCS: 87480; 87510; 87660

== ENCOUNTER 2023-03-25 20:57 | Outpatient (REF) | payer OTHER, SELFPAY ==
[2023-03-27 14:31] LABS: Hemoglobin S Screen Negative (Negative)
== END 2023-03-25 20:58 | disposition home or self-care (01) ==
LOC: LBN 20:57
PROVIDERS: PCP Nurse Practitioner Family; Visit Provider Nurse Practitioner Family
DX: Z13.9 Encounter for screening, unspecified (principal)
CPT/HCPCS: 85660

== ENCOUNTER 2023-09-16 17:15 | Outpatient (REF) | payer OTHER, SELFPAY | END 2023-09-16 17:16 | disposition home or self-care (01) | LOC: LBN 17:15 | PROVIDERS: PCP Family Medicine; Visit Provider Physician Assistant | DX: N39.0 Urinary tract infection, site not specified (principal); R10.9 Unspecified abdominal pain; R82.89 Other abnormal findings on cytological and histological examination of urine | CPT/HCPCS: 87086; 87480; 87510; 87660 ==

== ENCOUNTER 2023-10-27 15:23 | Outpatient (REF) | payer OTHER, SELFPAY ==
--- NOTE | 2023-10-27 14:45 | PAPFT_PTH ---
PATIENT: Amisha Dickson LOC: [facility] U#:[id number] AGE/SX: 23/F ROOM: RE10/27/[address]: Yvonne Watters : 2000 BED: DIS: 10/27/2023 SPEC #: [id number] RECD: 10/27/23 18:14 STATUS: SHIRA PICKARD #: [id number] GREY: 10/27/23 14:[address]: Yvonne Watters DEPT: [facility] Cytology RECD BY: Hansa Iyer ENTERED: 10/27/23 18:14 SP TYPE: PAPFT OTHR DR: Parag Yin DO Tissues: 1 - CX/ENDOCX FOR PAP SMEARS Procedures: PAP THIN PREP/[facility] Screening Comments: [id number]
== END 2023-10-27 15:24 | disposition home or self-care (01) ==
LOC: LBN 15:23
PROVIDERS: PCP Family Medicine; Visit Provider Obstetrics & Gynecology Gynecology
DX: Z12.4 Encounter for screening for malignant neoplasm of cervix (principal); B37.31 Acute candidiasis of vulva and vagina; N76.0 Acute vaginitis
CPT/HCPCS: 88142

== ENCOUNTER 2024-03-15 20:03 | Emergency (ER) | payer OTHER, SELFPAY ==
[2024-03-15 20:07] VITALS: BP 129/92; PULSE 77; RESP 16; TEMP 36.5; O2SAT 98
--- OUTSIDE RECORDS SUMMARY | 2024-03-15 21:32 | XMS_ITS | Encounter Summary ---
[place] [address] Care Team Providers Care Smart Energy Specialist Name Role Phone Aron Mo MD, Lisa Primary Care Provider [phone] Encounter Details Date Type Department Care Team (Late st Contact Info) Description 02/26/2016 Refill Dermatology at [address] [phone] Marta Yee LPN Social History Tobacco Use Types Packs/Day Years Used Date Smoking Tobacco: Never Sex and Gender Information Value Date Recorded Sex Assigned at Not on file Gender Identity Not on file Sexual Orientation Not on file documented as of this encounter Miscellaneous Notes * Telephone Encounter - Marta Marinelli LPN - 02/26/2016 5:10 PM EDT Albina voiced Amisha has not had another headache since Friday02/24/16. Stopped Minocycline on 02/20/16. Dr. Frazier recommendation to apply Clindamycin 1% Solution to face every AM after washing. Continue Retin A at night and keep the f/u appointment scheduled for 04/30/16. Albina agreed with plan. Request Clindamycin 1% Solution Disp. 60 Ml Refill 5 prescription be sent to [facility] in [place], [place]. * Telephone Encounter - Marta Marinelli LPN - 02/26/2016 4:21 PM EDT Nurse called patient to review medications. Message left. Awaiting return call. documented in this encounter Plan of Treatment Not on file documented as of this encounter Visit Diagnoses Not on filedocumented in this encounter Care Teams Smart Energy Specialist Relationship Specialty Start Date End Date Lisa Sharp [place] [address] PCP - General 05/08/10 04/14/17 documented as of this encounter
--- OUTSIDE RECORDS SUMMARY | 2024-03-15 21:32 | XMS_ITS | Encounter Summary ---
[place] [address] Care Team Providers Care Citizenship Teacher Name Role Phone Jax Mcfarland MD Primary Care Provider [phone] Encounter Details Date Type Department Care Team (Late st Contact Info) Description 08/24/2019 Refill Dermatology at [address] [phone] Marta Yee, MANAGER OPERATIONS RESEARCH Social History Tobacco Use Types Packs/Day Years Used Date Smoking Tobacco: Never Smokeless Tobacco: Never Sex and Gender Information Value Date Recorded Sex Assigned at Not on file Gender Identity Not on file Sexual Orientation Not on file documented as of this encounter Plan of Treatment Not on file documented as of this encounter Visit Diagnoses Not on filedocumented in this encounter Care Teams Citizenship Teacher Relationship Specialty Start Date End Date Jax Mcfarland MD [address] [place] [address] PCP - General Pediatrics 09/02/18 10/29/21 documented as of this encounter
--- OUTSIDE RECORDS SUMMARY | 2024-03-15 21:32 | XMS_ITS | Encounter Summary ---
[place] [address] Care Team Providers Care Weaving Supervisor Name Role Phone Kelly Nascimentonda Jyoti KAY Primary Care Provider [phone] Reason for Visit * Reason Comments Follow-up Acne Encounter Details Date Type Department Care Team (Late st Contact Info) Description 10/31/2017 8:00 AM EDT Office Visit Dermatology at [address] [address] Efra Frazier MD [address] [place] [address], [facility]LY [facility] [place] [address] Acne vulgaris Social History Tobacco Use Types Packs/Day Years Used Date Smoking Tobacco: Never Smokeless Tobacco: Never Sex and Gender Information Value Date Recorded Sex Assigned at Not on file Gender Identity Not on file Sexual Orientation Not on file documented as of this encounter Progress Notes * Efra Frazier MD - 10/31/2017 8:00 AM EDT Problem: 1. Follow-up acne vulgaris status post 4 months of isotretinoin 2. History of headaches triggered by minocycline Amisha follows up for a four-month check. She has been doing well. She has had no new side effects and really she has been able to deal with the dry skin and dry lips very well with emollients. A urine test today was negative. Physical examination was a pleasant 17-year-old who has a clear complexion. She has erythematous macules present on the lateral cheeks at sites of prior acne. She does have some borderline scarring which I think will largely flattened and improve over time on the right lateral cheek, some on the left lateral cheek. Assessment plan: Acne vulgaris status post 4 months of isotretinoin therapy 1. Continue isotretinoin 30 mg 1 p.o. twice daily will call in #[phone] to her [facility] drugstore in [place] with 0 refills 2. I [email or web address] website was accessed, counseling confirmed 3. Patient's control method will remain the same subcutaneous hormonal implant plus male latex condom. Reviewed again I pledge guidelines. Return to clinic in now be on a as needed basis for newly/concerns. Cc: Betty Nascimento APRN documented in this encounter Plan of Treatment Not on file documented as of this encounter Visit Diagnoses Diagnosis Acne vulgaris Other acne documented in this encounter Care Teams Weaving Supervisor Relationship Specialty Start Date End Date Betty Nascimento, BUFFET SERVER [address] [place] [address] PCP - General Pediatrics 04/15/17 09/01/18 documented as of this encounter
--- OUTSIDE RECORDS SUMMARY | 2024-03-15 21:32 | XMS_ITS | Encounter Summary ---
[place] [address] Care Team Providers Care Shutdown Coordinator Name Role Phone Jax Mcfarland MD Primary Care Provider [phone] Encounter Details Date Type Department Care Team (Late st Contact Info) Description 10/26/2019 3:45 PM EDT TH Visit (TeleHealth) Dermatology at [address] [address] Efra Frazier MD [address] [facility], [facility] [place] [address] Acne vulgaris Social History Tobacco Use Types Packs/Day Years Used Date Smoking Tobacco: Never Smokeless Tobacco: Never Sex and Gender Information Value Date Recorded Sex Assigned at Not on file Gender Identity Not on file Sexual Orientation Not on file documented as of this encounter Progress Notes * Efra Frazier MD - 10/26/2019 3:45 PM EDT Problem: 1. ??Follow-up acne vulgaris status post 2 months of second course of isotretinoin. 2.?Status post a??5-month course of isotretinoin completed November 2017 3.?History of headaches triggered by minocycline Amisha follows today utilizing the telehealth telephone visit for follow-up on her acne. She is now status post 2 months of the second course of isotretinoin. She states that she is doing well andthat her acne is clearing nicely. Aside from dry lips and dry skin she is not really having any side effects she states. She did visit the [facility] ER the other day because of an episode of dizziness and states that she actually passed out. She was taking her last final school examination, stood up suddenly, and passed out in her kitchen. She was found to have a UTI and is currently on an antibiotic for that. She has an appointment scheduled to see Dr. Rosa for a neurologic work-up. She had some lab work done which we will check on to be sure that this did not also potentially include a urine test. She otherwise has not had one done yet. Assessment plan: Acne vulgaris status post 2 months of isotretinoin, second course 1. Will check to see if the lab work done recently did include a urine test. 2. We will call the patient to let her know yes or no, because then she will need otherwise to get a urine test performed at [facility], where a standing order is in place for her. 3. Once we have negative printed test results we can call we can confirm counseling, call in prescription to her pharmacy for a 1 month supply continuing at the 40 mg 1 p.o. twice daily dosing. Dispense #[phone] refills. 4. We will schedule return appointment for the patient in 1 month, with a urine test to be done just prior to that, please. CC: Jax Mcfarland MD documented in this encounter Plan of Treatment Not on file documented as of this encounter Visit Diagnoses Diagnosis Acne vulgaris Other acne documented in this encounter Care Teams Shutdown Coordinator Relationship Specialty Start Date End Date Jax Mcfarland MD [address] [place] [address] PCP - General Pediatrics 09/02/18 10/29/21 documented as of this encounter
--- OUTSIDE RECORDS SUMMARY | 2024-03-15 21:32 | XMS_ITS | Encounter Summary ---
Author Organization [facility] [place] [address] Care Team Providers Care Process Safety Management Engineer Name Role Phone Jax Mcfarland MD Primary Care Provider [phone] Encounter Details Date Type Department Care Team (Late st Contact Info) Description 07/09/2021 Orders Only Occupational Medicine at [facility] [place] [address] Fidelia Orozco APRN [facility] [place] [address] Social History Tobacco Use Types Packs/Day Years Used Date Smoking Tobacco: Never Smokeless Tobacco: Never Sex and Gender Information Value Date Recorded Sex Assigned at Not on file Gender Identity Not on file Sexual Orientation Not on file documented as of this encounter Plan of Treatment Not on file documented as of this encounter Procedures Procedure Name Priority Date/Time Associated Diagnosis Comments MUMPS ANTIBODY, IGG Routine 07/09/2021 1 1:16 AM EST documented in this encounter Results * Mumps Antibody, IgG (07/09/2021 11:16 AM EST) Mumps Antibody IgG Pos Pos [facility] Blood Venous Draw / Unknown 07/09/2021 11:16 AM EST 07/10/2021 6:22 AM EST Narrative Resulting Agency Comment Spec In Lab Fidelia Orozco LAUNCH COMMANDER [employer] IMMUNOLOGY ORDERABLE S [facility] [place] [address] documented in this encounter Visit Diagnoses Not on filedocumented in this encounter Care Teams Process Safety Management Engineer Relationship Specialty Start Date End Date Jax Mcfarland MD [address] [place] [address] PCP - General Pediatrics 09/02/18 10/29/21 documented as of this encounter
--- OUTSIDE RECORDS SUMMARY | 2024-03-15 21:32 | XMS_ITS | Encounter Summary ---
[place] [address] Care Team Providers Care Shoe Repairer Name Role Phone Betty Nascimento APRN Primary Care Provider [phone] Reason for Referral * Diagnostic Test (Routine) - Closed Specialty Diagnoses / Procedures Referred By Yulissa reese Referred To Contact Pediatric Cardiology Diagnoses Syncope, unspecified syncope type Procedures Elio Burns, [facility] [place] [address] [facility] Pedi Cardiology [address] [place] [id number] Referral ID Status Reason Start Date Expiration Date V isits Requested Visits Authorized [id number] Closed Specialty Service Requested 03/05/2018 09/02/2018 1 1 Reason for Visit * Reason Comments Dizziness Encounter Details Date Type Department Care Team (Late st Contact Info) Description 03/04/2018 9:00 AM EDT Office [place] [address] Elio Miller [facility] [place] [address] Syncope, unspecified syncope type (Primary Dx) Social History Tobacco Use Types Packs/Day Years Used Date Smoking Tobacco: Never Smokeless Tobacco: Never Sex and Gender Information Value Date Recorded Sex Assigned at Not on file Gender Identity Not on file Sexual Orientation Not on file documented as of this encounter Last Filed Vital Signs Vital Sign Reading Time Taken Comments Blood Pressure 117/76 03/04/2018 10:04 AM EDT Pulse 74 03/04/2018 8:52 AM EDT Temperature - - Respiratory Rate 18 03/04/2018 8:52 AM EDT Oxygen Saturation 99% 03/04/2018 8:52 AM EDT Inhaled Oxygen Concentration - - Weight 67.8 kg (149 lb 6 oz) 03/04/2018 8:52 AM EDT Height 164.5 cm (5' 4.76) 03/04/2018 8:52 AM ED T Body Mass Index 25.04 03/04/2018 8:52 AM EDT Body Mass Index Percentile 84.07% 03/04/2018 8:5 2 AM EDT Growth Chart: [facility] (Girls, 2- 20 Years) documented in this encounter Progress Notes * Elio Miller, DO - 03/04/2018 9:00 AM EDT Pediatric Cardiology Consult Note ?? Name: Amisha Dickson : 2000 Age: 18 y.o. Location: [facility] [place] ?? Referring Provider: Betty Nascimento APRN Reason for Consult/CC: syncope ?? Dear Dr. Betty Nascimento APRN, ?? It was a pleasure evaluating Amisha Dickson today in the pediatric cardiology clinic for her recurrent syncope. Amisha Dickson is a 18 y.o. female with no significant past medical history who presents to clinic today after several episodes of syncope. Amisha is a senior in high school and active in [employer]. She said this summer was the first episode. At that time she was sucking air out of thehelium balloon, standing, felt dizziness about 15-20 seconds before and then had brief loss of consciousness with graying out of her vision and she woke up on the ground in her normal state of mentation seconds later. This was witnessed. The second 2 episodes also occurred the summer. Both of these were periods when she was lying in bed and jumped out of bed quickly. She again had dizziness just before and then short episodes of syncope. No loss of urine or bowel function and no twitching with any of these episodes. No chest pain, cyanosis, palpitations. No headache. No nausea or vomiting. No fever, rash, or other constitutional symptoms. More recently, she had one episode of syncope last weekend at the end of her football game. She wascheerleading throughout the game and then says she tripped on the track, felt dizziness, and then again had a brief loss of consciousness. Her eating and drinking habits appear adequate. She eats a bagel with cream cheese every morning, asalad with ham and cheese at lunch, and then whatever the family is eating for dinner. She states she drinks about four 20-ounce bottles of water every day. Her only medications have been topical acne medications as detailed below. No alcohol, tobacco, marijuana or other illicit drug use. 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 She wants to be a traveling nurse. She has a good network of friends and denies recent social change. ?? Past medical history: Patient Active Problem List Diagnosis Code ??? Acne vulgaris L70.0 ??? Nevus D22.9 ??? Syncope R55 ??? Febrile convulsion R56.00 ??? Croup J05.0 ??? Adopted Z02.82 Past surgical history: No past surgical history on file. Family history: There is no familial history of congenital heart disease. No history of early or unexplained . No myocardial infarction history in first or second-degree relatives. No history ofarrhythmias or pacemaker placement. No history of congenital hearing loss. Social history: She is sexually active but does not have a boyfriend or significant other. Current Outpatient Prescriptions on File Prior to Visit Medication Sig Dispense Refill ??? Isotretinoin (ACCUTANE) 30 mg Capsule Take 1 capsule by mouth 2 times daily. 60 capsule 0 ??? triamcinolone (ARISTOCORT) 0.5 % Ointment ??? tretinoin (RETIN-A) 0.01 % Gel Apply to face every night 1/2 hour after washing (Patient not taking: Reported on 03/04/2018) 15 g 3 ??? clindamycin (CLEOCIN T) 1 % Solution Apply to face every AM after washing. (Patient not taking:Reported on 03/04/2018) 60 mL 5 No current facility-administered medications on file prior to visit. No Known Allergies ?? Review of symptoms: Positive for syncope and dizziness. Complete review of symptoms was completed including constitutional/general, head, eyes, ears/nose/throat, respiratory, cardiovascular, lymphatic, hematologic, GI, , neurologic, musculoskeletal, endocrine, and skin systems. The pertinent positives are listed above and other systems are negative on review. ?? Physical Exam: BP 123/59 (BP Location (NBP): Left leg) Pulse 74 Resp 18 Ht 164.5 cm (5' 4.76) Wt 67.8 kg (149 lb 6 oz) SpO2 99% BMI 25.04 kg/m2 ?? General Appearance: Alert, cooperative, in no distress, appropriate for age Head: Normocephalic, no obvious abnormality Eyes: PERRL, EOM's intact, conjunctiva and corneas clear Nose: Nares symmetrical Throat: Oral mucosa are moist, pink Neck: Supple, symmetrical; no carotid bruit, no JVD Chest/Breast: No mass or tenderness to palpation along the costochondral joints Lungs: Clear to auscultation bilaterally, respirations unlabored Heart: Normal PMI, regular rhythm, normal rate for age, S1 and physiologically split S2; no murmur,clicks, rub or gallop. Abdomen: Soft, non-tender no obvious organomegaly Musculoskeletal: Tone and strength normal and symmetrical with normal ROM Skin/Hair/Nails: Skin warm, dry, and intact, no rashes, no distal clubbing Neurologic: Alert and oriented, no focal defect noted ?? I personally reviewed and interpreted the following results. ?? ECG interpretation 03/04/18: Normal ECG for age, normal sinus rhythm. Ventricular rate 74 bpm R-wave axis 50 NV interval 122 msec QRS duration 90 msec QTc 437 msec ?? Assessment: Amisha Dickson is a 18 y.o. female who has had several syncopal episodes that are preceded by a verybrief period of dizziness. Given this and that two of her syncopal episodes have occurred getting out of bed in the morning, I think the most reasonable explanation for her syncope is orthostasis. She does drink up to four 20-oz bottles of water a day, and so I do not think this is necessarily a big dehydration problem. I recommend liberalizing salt intake to help retain the water she is drinking, sometimes it takes up to 3 g daily in healthy teenagers. One of the other things that can be hard to prove his whether an arrhythmia is leading to the syncope. Typically SVT does not lead to syncope and will just present with palpitations and discomfort. It would be rare for her to have a ventricular based arrhythmia without family history. However, given the recurrence of syncope and lack of other predisposing symptoms, I think it is worth to obtain rhythm monitoring for 30 days to try to monitor the rhythm during one of these episodes. The frequency is less than once a week so a Holter would not be sufficient in this case. We also spoke about routine precautions with her dizziness, including getting up slowly from lying in bed, dangling her feet down for 30-60 seconds before getting up, and sitting or lying down if shedoes experience dizziness during the day. ?? Plan: Zio monitor to look for ectopy or arrhythmia in the setting of syncope. Our nurse met with Amisha and her father about the device and explained the process, placement, and return. Follow up to be determined on the monitor findings. If there are no abnormal findings and symptoms are improving, we will not schedule routine follow up and will be available as needed. Thank you for your referral. If there are any questions we can answer in follow- up, please give ourteam a call. ?? Elio Miller DO [facility] Pediatric Cardiology 60 minutes were spent in consultation with this patient and her father with more than half of this time counseling the patient on syncope, signs, and next steps as described above. documented in this encounter Plan of Treatment Not on file documented as of this encounter Procedures Procedure Name Priority Date/Time Associated Diagnosis Comments JONOPATCH Routine 04/06/2018 2:22 PM EDT Syncope, unspecified syncope type EKG 12-LEAD Routine 03/04/2018 9:01 AM EDT Syncope, unspecified syncope type documented in this encounter Results * Valarie (04/06/2018 2:22 PM EDT) Anatomical Region Laterality Modality Other Narrative 04/06/2018 4:27 PM EDT This is documentation for a Zio XT heart monitor that was ordered at [facility] by myself. Device was ordered for syncope and collapse. Total time device was worn is 11 days 1 hrs. Date: 03/18/18 Heart rate Max 187 bpm Min 48 bpm Mean 85 bpm 3 single supraventricular beats noted throughout the study. No couplets, no SVT runs. 0 single premature ventricular beats noted. No couplets, no runs. 4 patient triggered events were noted: Each of them were associated with sinus rhythm with NO ectopy. Rate range during these events were 102-132 bpm. No diary entries were noted. Overall, this is a normal study and there was no correlation in symptoms to abnormal ectopy or arrhythmia. Elio Miller DO [facility] Pediatric Cardiology Procedure Note Elio Miller DO - 04/06/2018 This is documentation for a Zio XT heart monitor [facility] [place] [facility] Device was ordered for syncope and collapse. Total time device was worn is 11 days 1 hrs. Date: 03/18/18 Heart rate Max 187 bpm Min 48 bpm Mean 85 bpm 3 single supraventricular beats noted throughout the study. No couplets,no SVT runs. 0 single premature ventricular beats noted. No couplets, no runs. 4 patient triggered events were noted: Each of them were associated with sinus rhythm with NO ectopy. Rate rangeduring these events were 102-132 bpm. No diary entries were noted. Overall, this is a normal study and there was no correlation in symptomsto abnormal ectopy or arrhythmia. Elio Miller DO [facility] Pediatric Cardiology Elio Miller DO CARDIAC SERVICES ORD ERABLES * EKG 12 Lead (03/04/2018 9:01 AM EDT) Ventricular rate 74 BPM MUSE SYSTEM Atrial Rate 74 BPM MUSE SYSTEM P-R Interval 122 ms MUSE SYSTEM QRS Duration 90 ms MUSE SYSTEM Q-T Interval 394 ms MUSE SYSTEM QTC Calculated (Bezet) 437 ms MUSE SYSTEM Calculated P [place] 52 degrees MUSE SYSTEM Calculated R [place] 50 degrees MUSE SYSTEM Calculated T [place] 23 degrees MUSE SYSTEM INTERPRETATION Normal sinus rhythm with sinus arrhythmia Normal ECG No previous ECGs available Confirmed by DO Miller Zachary C. ([id number]) on 03/04/2018 6:19:00 PM MUSE SYSTEM 03/04/2018 9:01 AM EDT 03/04/2018 6:19 PM EDT Elio Miller DO ECG ORDERABLES MUSE SYSTEM documented in this encounter Visit Diagnoses Diagnosis Syncope, unspecified syncope type- Primary documented in this encounter Care Teams Shoe Repairer Relationship Specialty Start Date End Date Betty Nascimento, WELDING MACHINE OPERATOR [employer]PER [employer] [address] [place] [address] PCP - General Pediatrics 04/15/17 09/01/18 documented as of this encounter
--- OUTSIDE RECORDS SUMMARY | 2024-03-15 21:32 | XMS_ITS | Encounter Summary ---
Author Organization [facility] [place] [address] Care Team Providers Care Hard Rock Miner Blasting Name Role Phone Jax Mcfarland MD Primary Care Provider [phone] Encounter Details Date Type Department Care Team (Late st Contact Info) Description 07/09/2021 Orders Only Occupational Medicine at [facility] [place] [address] Fidelia Orozco, [facility] [place] [address] Social History Tobacco Use Types Packs/Day Years Used Date Smoking Tobacco: Never Smokeless Tobacco: Never Sex and Gender Information Value Date Recorded Sex Assigned at Not on file Gender Identity Not on file Sexual Orientation Not on file documented as of this encounter Plan of Treatment Not on file documented as of this encounter Procedures Procedure Name Priority Date/Time Associated Diagnosis Comments QUANTIFERON-TB GOLD Routine 07/09/2021 1 1:16 AM EST documented in this encounter Results * QuantiFERON-TB Gold (07/09/2021 11:16 AM EST) Quantiferon Nil 0.020 IU/mL [facility] QFT TB Ag1-Nil 0.040 IU/mL [facility] QFT TB Ag2-Nil 0.000 IU/mL [facility] Quantiferon Mitogen-Nil >10.000 IU/mL [facility] Quantiferon-TB Gold Negative Negative [facility] Quantiferon Tb Interp M. tuberculosis infection NOT likely A negative specimen should have a TB1 Ag minus Nil value and TB2 Ag minus Nil value of less than 0.35 IU/mL OR a TB1 Ag minus Nil or TB2 Ag minus Nil value greater than or equal to 0.35 IU/mL AND a TB Ag minus Nil value from the same tube of less than 25% of the Nil value. A negative specimen must also have a mitogen minus Nil value greater than or equal to 0.5 IU/mL. A negative QFT-Plus result does not preclude the possibility of M. tuberculosis infection. False negative results can occur due to stage of infection (specimen obtained prior to the development of immune response), co-morbid conditions which affect immune function, or other immunological factors. [facility] Comment: The performance of the QFT-Plus assay has not been extensively evaluated with specimens from the following individuals: Individuals who have impaired or altered immune functions, such as those who have HIV infection or AIDS, those who have transplantation managed with immunosuppressive treatment or others who receive immunosuppressive drugs (e.g., corticosteroids, methotrexate, azathioprine, cancer chemotherapy), those who have other clinical conditions, such as diabetes, silicosis, chronic renal failure, and hematological disorders (e.g., leukemia and lymphomas), or those with other specific malignancies (e.g., carcinoma of the head or neck and lung). Individuals younger than age 17 years women. Diagnosis of, or the exclusion of tuberculosis disease, and assessment of Latent Tuberculosis Infection (LTBI) requires a combination of epidemiological, historical, Medical and diagnostic findings that should be taken into account when interpreting QFT-Plus results. Blood Venous Draw / Unknown 07/09/2021 11:16 AM EST 07/10/2021 6:12 AM EST Narrative Resulting Agency Comment Spec In Lab Fidelia Orozco APRN CHEMISTRY ORDERABLES [facility] [place] [address] documented in this encounter Visit Diagnoses Not on filedocumented in this encounter Care Teams Hard Rock Miner Blasting Relationship Specialty Start Date End Date Jax Mcfarland MD [address] [place] [address] PCP - General Pediatrics 09/02/18 10/29/21 documented as of this encounter
--- OUTSIDE RECORDS SUMMARY | 2024-03-15 21:32 | XMS_ITS | Encounter Summary ---
[place] [address] Care Team Providers Care Pumper Gager Name Role Phone Jax Mcfarland MD Primary Care Provider [phone] Encounter Details Date Type Department Care Team (Late st Contact Info) Description 10/26/2019 Refill Dermatology at [address] [address] Marta Yee, CART ATTENDANT Social History Tobacco Use Types Packs/Day Years [...] on filedocumented in this encounter Care Teams Pumper Gager Relationship Specialty Start Date End Date Jax Mcfarland MD [address] [place] [address] PCP - General Pediatrics 09/02/18 10/29/21 documented as of this encounter
--- OUTSIDE RECORDS SUMMARY | 2024-03-15 21:32 | XMS_ITS | Encounter Summary ---
Author [place] [address] Care Team Providers Care Director Market Research Name Role Phone Aron Mo MD, Lisa Primary Care Provider [phone] Encounter Details Date Type Department Care Team (Late st Contact Info) Description 12/05/2015 10:30 AM EDT Office Visit Dermatology at [address] [place] [address] Efra Frazier MD [address] [facility] [place] [address] Acne vulgaris Social History Tobacco Use Types Packs/Day Years Used Date Smoking Tobacco: Never Assessed Sex and Gender Information Value Date Recorded Sex Assigned at Not on file Gender Identity Not on file Sexual Orientation Not on file documented as of this encounter Progress Notes * Efra Frazier MD - 12/05/2015 10:51 AM EDT Problem: Followup acne vulgaris. Amisha follows up after last being seen in April. She states that the combination of the clindamycin 1% solution and the topical tretinoin 0.05% cream were ineffectual. She notes she went for a June 19 appointment. She does state that the nevus removed with shave biopsy from her left temporal scalp has healed well. Physical examination reveals a pleasant 15-year-old who has superficial inflammatory and comedonal acne of the cheeks, the chin, the forehead, sparsely over her shoulders and liberally over the upper back. She does not have any deep-seated inflammatory lesions. She has no conglobata, no scarring lesions. Assessment and Plan: Acne vulgaris, mild inflammatory and comedonal, facial, chest and back. a. Recommend that we do advanced oral therapies: Minocycline 50 mg 1 p.o. q.h.s. for a week, then 1 p.o. b.i.d. thereafter. Do not take with dairy products. Number 60 dispensed with one refill. b. Begin also tretinoin 0.1% cream. Apply sparingly q.o.h.s. to face only for two weeks, then q.h.s. 15 minutes after washing thereafter; 20 gm dispensed with five refills. c. Recommended I see her again at a month and a half for repeat check. Explained to the patient that it will take it about a month and a half to see improvement. These prescriptions were e-mailed in to her [facility] in [facility]. documented in this encounter Miscellaneous Notes * Addendum Note - Fozia Duong LPN - 12/05/2015 3:34 PM EDTAddended by: FOZIA DUONG on: 12/05/2015 03:34 PM Modules accepted: Orders * Addendum Note - Fozia Duong LPN - 12/05/2015 3:09 PM EDTAddended by: FOZIA DUONG on: 12/05/2015 03:09 PM Modules accepted: Orders documented in this encounter Plan of Treatment Not on file documented as of this encounter Visit Diagnoses Diagnosis Acne vulgaris Other acne documented in this encounter Care Teams Director Market Research Relationship Specialty Start Date End Date Lisa Sharp MD [facility] [place] [address] PCP - General 05/08/10 04/14/17 documented as of this encounter
--- OUTSIDE RECORDS SUMMARY | 2024-03-15 21:32 | XMS_ITS | Encounter Summary ---
[place] [address] Care Team Providers Care Glass Loading Equipment Tender Name Role Phone Aron Mo MD, Lisa Primary Care Provider [phone] Reason for Visit * Reason Comments Acne Follow-up Encounter Details Date Type Department Care Team (Late st Contact Info) Description 01/29/2016 9:45 AM EDT Office Visit Dermatology at [address] [address] Efra Frazier MD [address] [facility] [place] [address] Acne vulgaris Social History Tobacco Use Types Packs/Day Years Used Date Smoking Tobacco: Never Sex and Gender Information Value Date Recorded Sex Assigned at Not on file Gender Identity Not on file Sexual Orientation Not on file documented as of this encounter Progress Notes * Efra Frazier MD - 01/29/2016 9:45 AM EDT PROBLEM: Follow up acne vulgaris. Amisha follows up and is improved. She has been using the tretinoin 0.1% cream at night and has started the minocycline 50 b.i.d., tolerating it well. She is currently having a menstrual cycle, so her acne is a little bit worse. Physical examination reveals a pleasant 16-year-old who has mild inflammatory acne vulgaris with a few moderate lesions as well on the central cheeks, but also diffuse and very mild inflammatory acne over the entire back. She has mild to moderate comedonal acne of the central face and cheeks. ASSESSMENT/PLAN: Acne vulgaris, mild inflammatory back, mild to borderline moderate comedonal inflammatory facial, with mild comedonal of face as well. A. Advance minocycline from 50 to 100 mg 1 p.o. b.i.d., #60 dispensed with 1 refill. B. Continue tretinoin 0.1% cream, applying on a nightly basis. C. Recommend I see her again in another 2 months for repeat check. The higher minocycline dosing regimen was forwarded to her [facility] in [facility]. documented in this encounter Plan of Treatment Not on file documented as of this encounter Visit Diagnoses Diagnosis Acne vulgaris Other acne documented in this encounter Care Teams Glass Loading Equipment Tender Relationship Specialty Start Date End Date Lisa Sharp MD [address] [place] [address] PCP - General 05/08/10 04/14/17 documented as of this encounter
--- OUTSIDE RECORDS SUMMARY | 2024-03-15 21:32 | XMS_ITS | Encounter Summary ---
Author Organization [facility] [address] Care Team Providers Care Flight Attendant Inflight Services Name Role Phone Jessica Polanco APRN Primary Care Provider [phone] Reason for Referral * Diagnostic Test (Routine) - Closed Specialty Diagnoses / Procedures Referred By Yulissa t Referred To Contact Gastroenterology Diagnoses Constipation, unspecified constipation type ARM for constipation Procedures High Definition Anal Manometry Katty Hamm PA [facility] [place] [address] [facility] [address] [place] [id number] Referral ID Status Reason Start Date Expiration Date V isits Requested Visits Authorized [id number] Closed Consult, Test & Treat 08/27/2023 08/26/2024 1 1 Reason for Visit * Consultation (Routine) - Authorized Specialty Diagnoses / Procedures Referred By Contac t Referred To Contact Gastroenterology Diagnoses Other constipation GI FOR CHRONCI CONSTIPATION, TRIED ALL OTCS, AMITIZIA,TRULANCE AND LINZESS WITHOUT GREAT RELIEF Mia Smith, DIRECTOR OF ELEMENTARY EDUCATION [address] [place] [address] [facility] [address] [place] [phone] Referral ID Status Reason Start Date Expiration Date Visits Requested Visits Authorized [id number] Authorized Consult, Test & Treat PCP Updated and/or Approved 06/26/2023 06/25/2024 6 6 Encounter Details Date Type Department Care Team (Latest Contact Info) Description 08/27/2023 10:00 AM EDT TH Visit (TeleHealth) Gastroenterology at [facility] [place] [address] Katty Hamm PA [facility] [place] [address] Constipation, unspecified constipation type Social History Tobacco Use Types Packs/Day Years Used Date Smoking Tobacco: Never Smokeless Tobacco: Never Sex and Gender Information Value Date Recorded Sex Assigned at Not on file Gender Identity Not on file Sexual Orientation Not on file documented as of this encounter Progress Notes * Katty Hamm PA - 08/27/2023 10:00 AM EDT GASTROENTEROLOGY TELEHEALTH PROGRAM - NEW PATIENT VISIT Chief Complaint: Amisha Dickson is a 23 y.o. patient referred for consultation by Dr. Smith for chronic constipation History of Present Illness: Today's visit is a second opinion for chronic constipation Previously followed by [facility] years but over the last 2 years worsened Typically has a BM once per week She has hard stools and soft stools that she cannot always pass Prior to it worsening, she would have a BM 3-4 times per week. Trials: Prune juice Metamucil Miralax- BID Dulcolax Linzess- three doses: lower dose had no change. Higher dose caused cramps but no regular bowel movements Amitiza possibly Suppository No GI surgery Last colonoscopy 04/2023- no rectal biopsies No children No opoid use She was referred to pelvic floor PT but has not started sessions- she does not have schedule visits Medications: metroNIDAZOLE (Flagyl) 500 mg Tablet polymyxin B sulf-trimethoprim (POLYTRIM) Drops sulfamethoxazole-trimethoprim DS (Bactrim DS) 800-160 mg Tablet ISOtretinoin (ACCUTANE) 40 mg Capsule FLUoxetine (PROzac) 20 mg Capsule Allergies: has No Known Allergies. Past Medical History: has a past medical history of Acne vulgaris, Croup, Febrile convulsion, and Syncope. Past Surgical History: has no past surgical history on file. Family History: family history includes Diabetes in her mother and sister; Other in her father. denies family history of colon cancer, IBD, or celiac disease in mother father or other family members Social History: reports that she has never smoked. She has never used smokeless tobacco. Assessment/Plan: 23-year-old female seen for chronic constipation previously followed by [facility]. Her symptoms have been occurring for most of her life but has worsened in the last 2 years. She typically has a bowel movement once per week. She has tried many [id number]-ejp-[id number] as well as prescription medications including Linzess and Amitiza. Even on high-dose Linzess, she did not have predictable or increase in frequency of her bowel movements. She had a colonoscopy this past fall however no rectal biopsies were taken. We had a long discussion regarding etiologies of constipation including slow transit/IBS and pelvicfloor dysfunction. She is essentially failed management strategies for slow motility though her local GI or PCP can certainly try some of these prescription medication in combination. I will include a list of our generalized management strategies for slow motility knowing that she has tried many ofthese already but as above she certainly can try combination therapy. Also outlines her rescue therapy. Given that she has not done markedly well on prescription medications for slow transit I do think it would be important to evaluate for pelvic floor dysfunction as well. We discussed anorectal manometry in detail and what this test involves. We also discussed that if evidence of dyssynergic defecation I would refer her to pelvic floor physical therapy. She is agreeable. Lastly, we discussed the possibility of Hirschsprung's disease. She did have a colonoscopy in the fall, however biopsies were not taken. If anorectal manometry does not reveal dyssynergic defecation or if there is evidence of pelvic floor dysfunction but she does not note improvement in physical therapy, and may be worth repeating a sigmoidoscopy with rectal biopsies to evaluate for Hirschsprung's disease. She is in agreement with this plan. All of her questions today were answered Constipation Management Suggestions for Patients and Primary Care Providers Step 1 - continue/start daily miralax as follows (which may not be covered by insurance and can be obtained over the counter; patient should speak with their local managing provider if prescription is needed): 1) Start with 1 capful of miralax at night with a goal of at least 1 bowel movement per day 2) Patient can adjust the dose every 2-3 days as needed, but do not adjust the dosing every day as Miralax needs several days to fully work. The right Miralax dose depends on the patient. Consider several trials of: (1) trying to increase the nighttime dose to two caps, (2) adding a second morning dose, or (3) taking Miralax in the morning (instead of at night). 3) Loose stools and bloating become especially bothersome at doses higher than 2 capfuls twice daily, so higher doses are not recommended beyond 2 caps twice daily. 4) On days with loose stools, consider reducing miralax to 1/2 capful daily, but still take at least some miralax every day. - consider Metamucil (psyllium fiber) supplement. The no added sweeteners version is generally the easiest to tolerate and least likely to cause bloating (although one can use one with sugar or artificial sweetener if preferred and tolerated). Start at 1 teaspoon daily for 1 week, then 2 teaspoons daily for one week, then maintain one tablespoon daily afterward. Patients can slowly increase to 2 tablespoons daily if still constipated. Patients can titrate up and down on metamucil alongside miralax as needed. This combination of stool softener and fiber supplementation works well for the majority of patients with constipation and is safe for long-term usage. Step 2 If constipation persists for at least two weeks at the target dose, then try four consecutive dietary trials added to the regimen. Each dietary trial should be last at least two weeks and be done separately: 1) Make a smoothie once daily made of ?? cup kefir, ?? cup papaya, 1/3 cup aloe juice, one peeled (green or gold) kiwi fruit, blended with ice. 2) Take two peeled (green or gold) kiwifruit per day. 3) Mix 1 cup apple sauce, 1 cup oat bran, ?? cup prune juice. Take one Tbsp. Daily. Freeze the restin an ice cube tray to use as needed. 4) Drink Smooth Move tea once at night 5) Any combination of the the above Step 3 If the dietary interventions do not work to satisfaction, then trial each of the following hyzt-vun-cyaivld interventions. Each trial should be last at least four weeks and be done separately: IBGard, FDGard, Florastor probiotic, Align probiotic, VisBiome probiotic and rubens capsules or rubens tea. Step 4 If constipation symptoms remain bothersome despite all of the above measures the PCP and patient can consider trialing prescription medications. Please note that the above measures (any or all) can be continued with prescription medications and combination therapy is indeed typically more successful than any individual therapy on its own. PCP can escalate to on-label IBS-C drug therapy failing laxatives for >90 days (in no particularorder). NB: It is up to the prescribing provider to ensure that there are no contraindications or dosage adjustments required for individual patients. Generally speaking, try each drug for at least 90 days before stopping or before changing dose if the concern is ineffectiveness (as long as the drug is tolerated): 1) consider linaclotide (Linzess) - start 72 mcg daily and increase as needed to max daily dosage of 290 mcg daily. This may also benefit visceral hypersensitivity at higher dosages. Consider dissolving in a cup of water and drinking 1/2 glass of water if 72 mcg is too strong. The most common side effect is diarrhea. 2) switch to plecanatide (Trulance) - start 3 mg daily if experiencing bothersome diarrhea with 72 mcg linaclotide. This may also benefit visceral hypersensitivity at higher dosages. Consider dissolving in a cup of water and drinking 1/2 glass of water if 3 mg is too strong. The most common side effect is diarrhea. 3) consider IBSRela (tenapanor) 50 mg twice a day. This may also benefit visceral hypersensitivity.The most common side effect is diarrhea. Please note that it is best to prescribe this via [facility] for assistance with benefits investigations and prior authorizations. 4) consider lubiprostone 8 mcg twice daily for IBS-C/CIC overlap failing empiric fiber/laxatives >90 days. The most common side effects are nausea and diarrhea. 5) consider prucalopride (Motegrity) 2 mg daily for chronic idiopathic constipation (overlapping with IBS-C as a second diagnosis) failing the above options. The most common side effect is diarrhea. Headaches are another potential side effect but typically dissipate after 24 hours of therapy. Palpit ations can also occur which are typically benign but can be bothersome and generally necessitate discontinuation. It is recommended to ensure that there is no active suicidal ideation (and document this) prior to starting this medication as per FDA recommendations. 6) consider combination therapy of any of the options 1-4 with prucalopride Rescue Therapy Consider rescue therapy to help empty the colon prior to initiating any of the above trials to maximize the potential for success. This may also be needed intermittently if constipation worsens. Rescue regimen if no bowel movement for 2 days despite the bowel regimen above Step 1) use a glycerin suppository at night then try to have a bowel movement in 10-15 minutes. Tryagain if this is ineffective. Step 2) If glycerin is ineffective, use a warm (not hot) tap water enema. Try again if ineffective. Step 3) If enema is ineffective, try up to four senna tabs Step 4) if senna does not work, try a dulcolax suppository 30 minutes later Step 5) if ongoing issues try Miralax 14 capules mixed with 2 L of gastrorade single dose over 4 hours. Can repeat next day if required. No dietary restrictions required. Resume aggressive maintenance therapy with laxatives immediately afterwards. Step 6) if no bowel movements after the above recommend seeking urgent care or primary care guidance. [facility] Negrete [facility] [place] [id number] documented in this encounter Plan of Treatment Scheduled Orders Name Type Priority Associated Diagnoses Orde r Schedule High Definition Anal Manometry GI Routine Constipation, unspecified constipation type Expected: 08/27/2023 (Approximate), Expires: 02/26/2025 documented as of this encounter Visit Diagnoses Diagnosis Constipation, unspecified constipation type documented in this encounter Care Teams Flight Attendant Inflight Services Relationship Specialty Start Date End Date Jessica Polanco APRN [address] [place] [phone] PCP - General Family Medicine 07/03/23 documented as of this encounter
--- OUTSIDE RECORDS SUMMARY | 2024-03-15 21:32 | XMS_ITS | Continuity of Care Document ---
Author Organization [place] [facility] Address [address] [place] [address] Assessment No assessment recorded. Plan of Treatment Reminders Order Date Submit Date Provider Last Modified By Organization Details Last Modified Time Details Appointments None recorded. Lab None recorded. Referral None recorded. Procedures None recorded. Surgeries None recorded. Imaging None recorded. Medication Orders Aplisol 5 tub. unit/0.1 mL intradermal injection solution 2023 024 [id number], [address] [place], [address], 12:43:29 Patient TargetsNo targets recorded. Patient Instructions Encounter Date Encounter Id Patient Instructions Last Modified By Organization Details Last Modified Time 12/24/2023 [id number] 1. TB test was placed today 12/23 at approximately 12:30. This test needs to be read no sooner than 48 hours and no longer than 72 hours after placement. You need to return here either Monday 12/25 after 12:30 or before 12:30 on Tuesday 12/26 or else this will have to be redone. 2. Once TB test results have been finalized your paperwork will be complete. Not available 12/24/2023 12:19:26 Reason for Referral None Reported. Problems Name Problem SNOMED Code Status Onset Date Resolution Date Notes Provider Name and Address Organization Details Recorded Time Cellulit is of toe of right foot 49992338426 211172 Active 2021 Problem Code: L03.031; Problem Code Type: ICD-10; Not Available [facility] 3 05:36:29 Cellulit is of toe of left foot 77301992897 523862 Active 2021 Problem Code: L03.032; Problem Code Type: ICD-10; Not Available [facility] 3 05:36:29 Noninfla mmatory disorder of the vagina 79232972 Completed 202204/13/2023 Problem Code: N89.8; Problem Code Type: ICD-10; Not Available [facility] 4 05:35:46 Screenin g for disorder Completed 202204/13/2023 Problem Code: Z13.9; Problem Code Type: ICD-10; Not Available [facility] 4 05:35:46 History and physical examinat ion, sports particip ation Completed 202204/13/2023 Problem Code: Z02.5; Problem Code Type: ICD-10; Not Available [facility] 4 05:35:46 Influenz a caused by Influenz a A virus 258812871 Active 2023 SAGRARIO LEE PA-C [facility] [address]on[address], [place], [address] [facility] 4 10:15:49 Problem Notes None recorded. Medical Equipment None Reported. Allergies Allergen ID Allergen Name Allergen Category Reaction Reaction Severity Criticality Documentation Date Start Date Code Code System Note Provider Name and Address Organization Details Recorded Time 94272 sesame extract food,medi cation dyspnea mild Not available 06/27/20232022 73038 60 RxNorm Liberty Sharp RN [facility], [facility] 4 09:40:06 Medications Name Sig Start Date Stop Date Status Note LastModified by Organization Details LastModified Time fluconazole 150 mg tablet 1 tablet by mouth every 72 hours 08/08 completed Not Available Not Available Not Available Aplisol 5 tub. unit/0.1 mL intradermal injection solution Inject 0.1 mL by intraderm al route. 2023 active Not Available Not Available Not Avai lable clindamycin HCl 150 mg capsule Take 3 capsule by mouth three times a day 11/28 completed Not Available Not Available Not Available metronidazo le 500 mg tablet 08/08 completed Not Available Not Available Not Available ibuprofen 200 mg tablet Take 3 tablets by oral route. 2023 active Not Available Not Available Not Avai lable ibuprofen 600 mg tablet 12/23 completed Not Available Not Available Not Available albuterol sulfate HFA 90 mcg/actuati on aerosol inhaler Inhale 2 puffs every 4 hours by inhalatio n route as needed for 14 days. 12/23 completed Not Available Not Available Not Available spironolact one 50 mg tablet active Not Available Not Available Not Available duloxetine 30 mg capsule,del ayed release 08/08 completed Not Available Not Available Not Available Linzess 72 mcg capsule active Not Available Not Available Not Available Vitals Date Recorded Body height Body mass index (BMI) Body weight Respiratory rate Body temperature Oxygen saturation Oxygen saturation in Arterial blood by Pulse oximetry Heart rate Systolic blood pressure Diastolic blood pressure Provider Name and Address Organization Details Last Updated DateTime 163.83 cm 29.3 kg/m2 11973.5 8 g 17 /min 98.2 [degF] 98 % 98 % 86 /min 105 mm[Hg] 72 mm[Hg] STAN BARNEY MA [facility] 11:32:16 Social History Question Answer Notes LastModified by Organizat ion Details LastModified Time Tobacco Smoking Status Never Smoker Liberty Sharp RN [facility], [facility] 08/08/2023 09:40:46 What Was The Date Of Your Most Recent Tobacco Screening? 12/24/2023 [email or web address] Information not available 12/24/2023 Has Tobacco Cessation Counseling Been Provided? Yes Information not available 08/08/2023 On What Date Was Tobacco Cessation Counseling Provided? 12/24/2023 [email or web address] Information not available 12/24/2023 Do You Or Have You Ever Used Any Other Forms Of Tobacco Or Nicotine? No Information not available 08/08/2023 Sex: Female Functional Status None recorded. Mental Status None recorded. Family History Nothing Reported. Medical History No medical history recorded. Gynecological HistoryNo gynecological history recorded. Obstetrics History GPAL:G 0 P 0 0 0 0 Immunizations Vaccine Type Date Status Provider Name and Address Organization Details Recorded Time MMR 01/12/2002 completed Not Available [facility] 05:50:54 MMR 01/31/2005 completed Not Available [facility] 05:50:54 DTaP, unspecified formulation 2001 completed Not Available [facility] 04/25/2023 05:50:54 DTaP, unspecified formulation 01/31/2005 completed Not Available [facility] 04/25/2023 05:50:54 DTaP, unspecified formulation 2001 completed Not Available [facility] 04/25/2023 05:50:54 DTaP, unspecified formulation 04/13/2002 completed Not Available [facility] 04/25/2023 05:50:54 DTaP, unspecified formulation 2001 completed Not Available [facility] 04/25/2023 05:50:55 meningococcal ACWY, unspecified formulation 03/26/2013 completed Not Available [facility] 04/25/2023 05:50:55 meningococcal ACWY, unspecified formulation 05/26/2018 completed Not Available [facility] 04/25/2023 05:50:55 pneumococcal, unspecified formulation 2001 completed Not Available [facility] 04/25/2023 05:50:55 pneumococcal, unspecified formulation 2001 completed Not Available [facility] 04/25/2023 05:50:55 pneumococcal, unspecified formulation 2001 completed Not Available [facility] 04/25/2023 05:50:55 Tdap 02/22/2013 completed Not Available [facility] 05:50:55 HPV, unspecified formulation 08/23/2013 completed Not Available [facility] 04/25/2023 05:50:56 HPV, unspecified formulation 02/22/2013 completed Not Available [facility] 04/25/2023 05:50:56 HPV, unspecified formulation 03/26/2013 completed Not Available [facility] 04/25/2023 05:50:56 Hib, unspecified formulation 2001 completed Not Available [facility] 04/25/2023 05:50:56 Hib, unspecified formulation 2001 completed Not Available [facility] 04/25/2023 05:50:56 Hib, unspecified formulation 04/13/2002 completed Not Available [facility] 04/25/2023 05:50:56 Hib, unspecified formulation 2001 completed Not Available [facility] 04/25/2023 05:50:56 varicella 01/12/2002 completed Not Available [facility] 05:50:56 varicella 02/04/2008 completed Not Available [facility] 05:50:57 SARS-COV-2 (COVID-19) vaccine, UNSPECIFIED 07/20/2020 completed Not Available [facility] 04/25/2023 05:50:57 SARS-COV-2 (COVID-19) vaccine, UNSPECIFIED 09/13/2020 completed Not Available [facility] 04/25/2023 05:50:57 Hep B, unspecified formulation 07/08/2002 completed Not Available [facility] 04/25/2023 05:50:57 Hep B, unspecified formulation 2001 completed Not Available [facility] 04/25/2023 05:50:57 Hep B, unspecified formulation 2001 completed Not Available [facility] 04/25/2023 05:50:57 Hep A, unspecified formulation 04/08/2017 completed Not Available [facility] 04/25/2023 05:50:57 Hep A, unspecified formulation 05/26/2018 completed Not Available [facility] 04/25/2023 05:50:58 influenza, unspecified formulation 07/13/2019 completed Not Available [facility] 04/25/2023 05:50:58 influenza, unspecified formulation 03/31/2020 completed Not Available [facility] 04/25/2023 05:50:58 influenza, unspecified formulation 04/08/2017 completed Not Available [facility] 04/25/2023 05:50:58 influenza, unspecified formulation 05/26/2018 completed Not Available [facility] 04/25/2023 05:50:58 polio, unspecified formulation 01/31/2005 completed Not Available [facility] 04/25/2023 05:50:58 polio, unspecified formulation 2001 completed Not Available [facility] 04/25/2023 05:50:58 polio, unspecified formulation 04/13/2002 completed Not Available [facility] 04/25/2023 05:50:58 polio, unspecified formulation 2001 completed Not Available [facility] 04/25/2023 05:50:59 typhoid, unspecified formulation 07/21/2018 completed Not Available [facility] 04/25/2023 05:50:59 influenza, unspecified formulation 02/27/2023 completed Not Available [facility] 06/27/2023 05:31:42 Past Encounters Encounter ID Performer Location Encounter Start Date Encounter Closed Date Diagnosis/Indication Diagnosis SNOMED-CT Code Diagnosis ICD10 Code [id number] Liberty Sharp RN [address] [place] [address] 12/24/2023 11:19:44 12/24/2023 12:30:26 History and physical examination, sports participation 289737752 Z02.5 Tuberculos is screening 002526626 Z11.1 Health Concerns Section Related Observation LastModified by Organization Detai ls LastModified Time None Recorded Concern Status LastModified by Organization Details LastModified Time None Recorded Payers Encounter Date Sequence Insurance Name Policy Number Policy Ovalle Covered Member ID Ovalle Member ID Guarantor Name 12/24/2023 1 [employer] - CHOICE (POS II) [id number] Dolly Dickson [id number] Amisha Dickson Notes Date Note Type Note Provider Name and Address Organization Details Recorded Time 12/24/2023 text/html HPI Notes: Alejandra salgado is a 23-year-old female who 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 She played basketball for the [employer] last year without any physical issues such as chest pain, shortness of breath, syncope. She does have history of approximately 4 fainting spells which occurred when she was in high school with the last episode happening in 2019. She was seen by her primary care provider for this and actually ended up with a 14-day heart monitor and noted no complications and has not occurred since. She played basketball last season without any issues and has continued to do workouts the rest of the year without issue. There is been no family history of sudden cardiac . She has no underlying heart or lung concerns she does not feel excessively short of breath or develops chest pain with activities. She is an otherwise healthy individual who had a couple concussions when she was younger and has history of irritable bowel syndrome. She has no current complaints. She has had no major physical injuries. She has had her first TB placement and is questioning if we can do second TB placement here. We will help provide that. Liberty Sharp RN [facility], [place] - [facility]. 12/24/2023 12:31:01 OBGyn Episode No OBEpisode recorded.
--- OUTSIDE RECORDS SUMMARY | 2024-03-15 21:32 | XMS_ITS | Encounter Summary ---
[place] [address] Care Team Providers Care Maitre D Name Role Phone Aron Mo MD, Elaine Primary Care Provider [phone] Encounter Details Date Type Department Care Team (Late st Contact Info) Description 04/29/2016 Refill Dermatology at [address] [phone] Marta Yee, SAND ANALYST Social History Tobacco Use Types Packs/Day Years Used Date Smoking Tobacco: Never Sex and Gender Information Value Date Recorded Sex Assigned at Not on file Gender Identity Not on file Sexual Orientation Not on file documented as of this encounter Plan of Treatment Not on file documented as of this encounter Visit Diagnoses Not on filedocumented in this encounter Care Teams Maitre D Relationship Specialty Start Date End Date Lisa [place] [address] PCP - General 05/08/10 04/14/17 documented as of this encounter
--- OUTSIDE RECORDS SUMMARY | 2024-03-15 21:32 | XMS_ITS | Encounter Summary ---
[place] [address] Care Team Providers Care Religious Leader Name Role Phone Jax Mcfarland MD Primary Care Provider [phone] Encounter Details Date Type Department Care Team (Late st Contact Info) Description 09/24/2019 4:00 PM EDT TH Visit (TeleHealth) Dermatology at [address] [address] Efra Frazier MD [address] [facility] [place] [address] Acne vulgaris Social History Tobacco Use Types Packs/Day Years Used Date Smoking Tobacco: Never Smokeless Tobacco: Never Sex and Gender Information Value Date Recorded Sex Assigned at Not on file Gender Identity Not on file Sexual Orientation Not on file documented as of this encounter Progress Notes * Efra Frazier MD - 09/24/2019 4:00 PM EDT Problem: 1. Follow-up acne vulgaris status post 1 month of second course of isotretinoin. 2. ??Status post a 5-month course of isotretinoin completed November 2017 3. ??History of headaches triggered by minocycline Amisha is contacted today by telephone via the [employer] system in follow-up status post a the first month of her second course of isotretinoin. She states is been tolerating it well. She is noted dry chapped lips but no headaches, no nosebleeds, no musculoskeletal pains, no excessive fatigue or back pain. She is using Cetaphil as a lotion for dry skin of her face. She is already seeing some improvement of her acne and is pleased about that. Assessment and plan: Acne vulgaris in an 19-year-old status post first month of second course of isotretinoin. 1. Urine test was negative on September 21. 2. We will go online to the [employer] program, confirm counseling, and entered the negative test results. 3. Will call in 1 month supply of isotretinoin to [facility]: 40 mg 1 p.o. twice daily dispense #60 with 0 refills. 4. Plan another 1 month telephone tele-med visit in another month for a repeat check. Plan on a 5-month course. Cc: Jax Mcfarland MD documented in this encounter Plan of Treatment Not on file documented as of this encounter Visit Diagnoses Diagnosis Acne vulgaris Other acne documented in this encounter Care Teams Religious Leader Relationship Specialty Start Date End Date Jax Mcfarland MD [address] [place] [address] PCP - General Pediatrics 09/02/18 10/29/21 documented as of this encounter
--- OUTSIDE RECORDS SUMMARY | 2024-03-15 21:32 | XMS_ITS | Encounter Summary ---
[place] [address] Care Team Providers Care Blanking Machine Operator Name Role Phone Kelly Nascimentonda Jyoti KAY Primary Care Provider [phone] Reason for Visit * Reason Comments Follow-up Acne Encounter Details Date Type Department Care Team (Late st Contact Info) Description 10/02/2017 11:30 AM EDT Office Visit Dermatology at [address] [address] Efra Frazier MD 580 [facility], [facility] [place] [address] Acne vulgaris Social History Tobacco Use Types Packs/Day Years Used Date Smoking Tobacco: Never Smokeless Tobacco: Never Sex and Gender Information Value Date Recorded Sex Assigned at Not on file Gender Identity Not on file Sexual Orientation Not on file documented as of this encounter Progress Notes * Efra Frazier MD - 10/02/2017 11:30 AM EDT Problem: 1. Follow-up acne vulgaris status post 3 months of isotretinoin 2. Headaches triggered by minocycline Amisha follows today for 3 month check. She been doing well. Her cheilitis has largely resolved Physical examination reveals a pleasant 17-year-old whose angular cheilitis has resolved. She has no active acne currently. She denies any headaches nosebleeds muscle aches or pains Assessment plan: Acne Acne vulgaris, moderate inflammatory and comedonal with scarring in a 17-year-old 1. Continue isotretinoin 30 mg 1 p.o. twice daily #60 will be called into [place] [facility] [place] 2. I [employer] website was accessed, counseling confirmed 3. Patient's control methods will remain subcutaneous hormonal implant plus male latex condom. Reviewed again I lucy guidelines. Return to clinic in a month for repeat check planning on a 5 month course 4. Patient did not have labs drawn prior to visit but urine sample for test today was negative. Cc: Betty Nascimento APRN documented in this encounter Plan of Treatment Not on file documented as of this encounter Visit Diagnoses Diagnosis Acne vulgaris Other acne documented in this encounter Care Teams Blanking Machine Operator Relationship Specialty Start Date End Date Betty Nascimento APRN [address] [place] [address] PCP - General Pediatrics 04/15/17 09/01/18 documented as of this encounter
--- OUTSIDE RECORDS SUMMARY | 2024-03-15 21:32 | XMS_ITS | Encounter Summary ---
Author [place] [address] Care Team Providers Care Proc Tech Name Role Phone Kelly Nascimentonda Jyoti KAY Primary Care Provider [phone] Reason for Visit * Reason Comments Follow-up Acne Encounter Details Date Type Department Care Team (Late st Contact Info) Description 08/04/2017 8:45 AM EST Office Visit Dermatology at [address] [phone] Efra Frazier MD 580 [facility], [facility] [place] [address] Acne vulgaris Social History Tobacco Use Types Packs/Day Years Used Date Smoking Tobacco: Never Smokeless Tobacco: Never Sex and Gender Information Value Date Recorded Sex Assigned at Not on file Gender Identity Not on file Sexual Orientation Not on file documented as of this encounter Progress Notes * Efra Frazier MD - 08/04/2017 8:45 AM EST Problem: 1. Acne vulgaris status post 1 month of isotretinoin 2. History of headaches triggered by minocycline Amisha follows up today with her sister Torri. She has been doing well. She has been toleratingmedication well without any side effects other than dryness and chapping of her lips. Physical examination is a pleasant 17-year-old who is deep-seated scarring acne vulgaris in the lateral cheeks is already much less inflamed. She has a little bit also on the upper shoulders and back. Assessment plan acne vulgaris, mixed inflammatory comedonal moderate with scarring in a 17-year-old 1. Continue isotretinoin but advanced from 30 mg 1 p.o. daily 1 p.o. twice daily #60 dispensed with0 refills. [facility] [place] 2. Isotretinoin labs for this month were within normal limits, repeat again in a month and return to clinic in 1 month 3. Report reviewed the eye pledge guidelines. Patient's control methods will be subcutaneous implant plus me a latex condom. Cc: Betty Nascimento APRN documented in this encounter Plan of Treatment Not on file documented as of this encounter Visit Diagnoses Diagnosis Acne vulgaris Other acne documented in this encounter Care Teams Proc Tech Relationship Specialty Start Date End Date Betty Nascimento, ELIZA [address] [place] [address] PCP - General Pediatrics 04/15/17 09/01/18 documented as of this encounter
--- OUTSIDE RECORDS SUMMARY | 2024-03-15 21:32 | XMS_ITS | Encounter Summary ---
[place] [address] Care Team Providers Care Senior Net Web Developer Name Role Phone Jax Mcfarland MD Primary Care Provider [phone] Reason for Visit * Reason Comments Acne Encounter Details Date Type Department Care Team (Late st Contact Info) Description 07/26/2019 4:15 PM EST Office Visit Dermatology at [address] [address] Efra Frazier MD 580 [facility] [place] [address] Acne vulgaris Social History Tobacco Use Types Packs/Day Years Used Date Smoking Tobacco: Never Smokeless Tobacco: Never Sex and Gender Information Value Date Recorded Sex Assigned at Not on file Gender Identity Not on file Sexual Orientation Not on file documented as of this encounter Progress Notes * Efra Frazier MD - 07/26/2019 4:15 PM EST Problem: 1. Follow-up acne vulgaris, recurrent following 5-month course of isotretinoin completed November 2017 2. History of headaches triggered by minocycline Amisha follows up and this summer her acne started to flareup again. She has been using medicated washes without benefit. There is not any perimenstrual flaring to her acne. She wonders what can be done for this. Physical examination reveals a pleasant 19-year-old who has a sebaceous complexion and moderate diffuse comedonal acne widespread of her face but also inflammatory papules and pustules of her the upper chest and back. She has ice pick scarring on her face. Assessment plan: Recurrent acne vulgaris following first course of isotretinoin completed November 2017 1. Today patient was registered to again begin isotretinoin 1 month from now. 2. Patient weighs 63 kg, will start her in 1 month on 40 mg 1 p.o. twice daily. We will plan another 5-month course. 3. Reviewed I pledge program, I pledge requirements, and patient given her I pledge number 4. Return to clinic here in another month to restart medication and obtain first her second urine test prior to start 5. Her control methods this time will be IUD and male latex condom Cc: Jax Mcfarland MD ?? documented in this encounter Plan of Treatment Not on file documented as of this encounter Visit Diagnoses Diagnosis Acne vulgaris Other acne documented in this encounter Care Teams Senior Net Web Developer Relationship Specialty Start Date End Date Jax Mcfarland MD [address] [place] [address] PCP - General Pediatrics 09/02/18 10/29/21 documented as of this encounter
--- OUTSIDE RECORDS SUMMARY | 2024-03-15 21:32 | XMS_ITS | Encounter Summary ---
Author Organization [facility] [place] [address] Care Team Providers Care Aerospace Control And Warning Systems Name Role Phone Jax Mcfarland MD Primary Care Provider [phone] Encounter Details Date Type Department Care Team (Late st Contact Info) Description 07/09/2021 Orders Only Occupational Medicine at [facility] [place] [address] Fidelia Orozco, [facility] [place] [address] Social History Tobacco Use Types Packs/Day Years Used Date Smoking Tobacco: Never Smokeless Tobacco: Never Sex and Gender Information Value Date Recorded Sex Assigned at Not on file Gender Identity Not on file Sexual Orientation Not on file documented as of this encounter Plan of Treatment Not on file documented as of this encounter Procedures Procedure Name Priority Date/Time Associated Diagnosis Comments HEPATITIS B SURFACE ANTIBODY Routine 07/09/2021 11:16 AM EST documented in this encounter Results * Hepatitis B Surface Antibody (07/09/2021 11:16 AM EST) Hepatitis B Surface Antibody, Quantitative >800.0 IU/L [facility] Comment: HepB Surface Ab Quant: Unvaccinated: < 8.5 IU/L Vaccinated: > 11.5 IU/L Hepatitis B Surface Antibody Positive [facility] Comment: Patient is considered to be immune to HBV infection. Expected Results: Vaccinated: Positive Unvaccinated: Negative Blood Venous Draw / Unknown 07/09/2021 11:16 AM EST 07/09/2021 11:23 AM EST Narrative Resulting Agency Comment Spec In Lab Fidelia Orozco COURSE INSTRUCTOR CHEMISTRY ORDERABLES Performing Organization Address City/State/[facility] Co de Phone Number [facility] [place] [address] documented in this encounter Visit Diagnoses Not on filedocumented in this encounter Care Teams Aerospace Control And Warning Systems Relationship Specialty Start Date End Date Jax Mcfarland MD [address] [place] [address] PCP - General Pediatrics 09/02/18 10/29/21 documented as of this encounter
--- OUTSIDE RECORDS SUMMARY | 2024-03-15 21:32 | XMS_ITS | Encounter Summary ---
[place] [address] Care Team Providers Care Bunch Maker Hand Name Role Phone Kelly Nascimentonda Jyoti KAY Primary Care Provider [phone] Reason for Visit * Reason Comments Follow-up Acne Encounter Details Date Type Department Care Team (Late st Contact Info) Description 09/01/2017 11:15 AM EDT Office Visit Dermatology at [address] [address] Efra Frazier MD [address] [facility], [facility] [place] [address] Acne vulgaris Social History Tobacco Use Types Packs/Day Years Used Date Smoking Tobacco: Never Smokeless Tobacco: Never Sex and Gender Information Value Date Recorded Sex Assigned at Not on file Gender Identity Not on file Sexual Orientation Not on file documented as of this encounter Progress Notes * Efra Frazier MD - 09/01/2017 11:15 AM EDT Problem: 1. Acne vulgaris status post 2 months of isotretinoin 2. History of headaches triggered by minocycline Amisha follows up today with her friend Torri. Has been doing well. She been tolerating medication well without any other side effects other than dryness and chapping of her lips, and now also a bit more at the angles of her mouth physical examination Physical examination is a pleasant 17-year-old who has angular colitis present bilaterally as well as calculation of her lips diffusely. The deep-seated acne vulgaris of the lateral cheeks is essentially quiescent. She is a very pleased with her progress. She denies any headaches nosebleeds muscle aches or pains. Assessment and plan: Acne vulgaris, inflammatory/comedonal moderate inflammatory with scarring in a 17-year-old 1. Continue isotretinoin 30 mg 1 p.o. twice daily. #60 will be called into her [facility] in [facility]. 2. I pledge website is accessed counseling confirmed. 3. Patient's control methods will be subcutaneous hormonal implant plus male latex condom. Reviewed again I plechristiano guidelines. Return to clinic in another month for repeat check planning on a 5month course. 4. Isotretinoin labs for this months were within normal limits. Repeat again in 1 month return to clinic in 1 month Cc: Betty Nascimento APRN documented in this encounter Plan of Treatment Not on file documented as of this encounter Visit Diagnoses Diagnosis Acne vulgaris Other acne documented in this encounter Care Teams Bunch Maker Hand Relationship Specialty Start Date End Date Betty Nascimento, IMAGE SCIENTIST [address] [place] [address] PCP - General Pediatrics 04/15/17 09/01/18 documented as of this encounter
--- OUTSIDE RECORDS SUMMARY | 2024-03-15 21:32 | XMS_ITS | Encounter Summary ---
[place] [address] Care Team Providers Care Hat Liner Name Role Phone Aron Mo MD, Elaine Primary Care Provider Encounter Details Date Type Department Care Team (Late st Contact Info) Description 01/29/2016 Refill Dermatology at [address] [phone] Marta Yee, BYPRODUCTS OPERATOR Social History Tobacco Use Types Packs/Day Years Used Date Smoking Tobacco: Never Sex and Gender Information Value Date Recorded Sex Assigned at Not on file Gender Identity Not on file Sexual Orientation Not on file documented as of this encounter Plan of Treatment Not on file documented as of this encounter Visit Diagnoses Not on filedocumented in this encounter Care Teams Hat Liner Relationship Specialty Start Date End Date Lisa Sharp [place] [address] PCP - General 05/08/10 04/14/17 documented as of this encounter
--- OUTSIDE RECORDS SUMMARY | 2024-03-15 21:32 | XMS_ITS | Encounter Summary ---
[place] [address] Care Team Providers Care Entertainer Or Variety Artist Name Role Phone Jax Mcfarland MD Primary Care Provider [phone] Encounter Details Date Type Department Care Team (Late st Contact Info) Description 09/24/2019 Refill Dermatology at [address] [address] Marta Yee, TESTER OPERATOR HELPER Social History Tobacco Use Types Packs/Day Years [...] on filedocumented in this encounter Care Teams Entertainer Or Variety Artist Relationship Specialty Start Date End Date Jax Mcfarland MD [address] [place] [address] PCP - General Pediatrics 09/02/18 10/29/21 documented as of this encounter
--- OUTSIDE RECORDS SUMMARY | 2024-03-15 21:32 | XMS_ITS | Continuity of Care Document ---
Author Organization [facility] Address [address] [place] [address] Assessment Encounter Date Assessment Date Assessment LastModified by Organization Details LastModified Time 12/26/2023 12/26/2023 PPD read at 0mm Result NEGATIVE Results given to patient and documented within the EMR. Not available 12/26/2023 13:19:41 Plan of Treatment Reminders Order Date Submit Date Provider Last Modified By Organization Details Last Modified Time Details Appointments None record ed. Lab None record ed. Referral None record ed. Procedures None record ed. Surgeries None record ed. Imaging None record ed. Medication Orders None record ed. Patient TargetsNo targets recorded. Patient InstructionsNo instructions recorded. Reason for Referral None Reported. Problems Name Problem SNOMED Code Status Onset Date Resolution Date Notes Provider Name and Address Organization Details Recorded Time Cellulit is of toe of right foot 07434631949 260629 Active 2021 Problem Code: L03.031; Problem Code Type: ICD-10; Not Available [facility] 3 05:36:29 Cellulit is of toe of left foot 52482446117 844915 Active 2021 Problem Code: L03.032; Problem Code Type: ICD-10; Not Available [facility] 3 05:36:29 Noninfla mmatory disorder of the vagina 11692943 Completed 202204/13/2023 Problem Code: N89.8; Problem Code Type: ICD-10; Not Available [facility] 4 05:35:46 Screenin g for disorder Completed 202204/13/2023 Problem Code: Z13.9; Problem Code Type: ICD-10; Not Available [facility] 4 05:35:46 History and physical examinat pushpa sports particip ation Completed 202204/13/2023 Problem Code: Z02.5; Problem Code Type: ICD-10; Not Available [facility] 4 05:35:46 Influenz a caused by Influenz a A virus 486966563 Active [address], [place], [address] , [facility] 4 10:15:49 Problem Notes None recorded. Medical Equipment None Reported. Allergies Allergen ID Allergen Name Allergen Category Reaction Reaction Severity Criticality Documentation Date Start Date Code Code System Note Provider Name and Address Organization Details Recorded Time 24588 sesame extract food,medi cation dyspnea mild Not available 06/27/20232022 96780 60 RxNorm Liberty Sharp RN [facility], [facility] 4 09:40:06 Medications Name Sig Start [...] Not Available Vitals Date Recorded Body height Provider Name an d Address Organization Details Last Updated DateTime 12/26/2023 163.83 cm NHAN BROOKS [address], [place], [address], [facility] 12/26/2023 13:18:45 Social History Question Answer Notes LastModified by Organizat ion Details LastModified Time Tobacco Smoking Status Never Smoker Liberty Sharp RN [facility], [facility] 08/08/2023 09:40:46 What Was The Date Of Your Most Recent Tobacco Screening? 12/24/2023 [email or web address] Information not available 12/24/2023 Has Tobacco Cessation Counseling Been Provided? Yes Information not available 08/08/2023 On What Date Was Tobacco Cessation Counseling Provided? 12/24/2023 [email or web address] Information not available 12/24/2023 Do You Or [...] Recorded Time MMR 01/12/2002 completed Not Available [facility] 05:50:54 MMR 01/31/2005 completed Not Available [facility] 05:50:54 DTaP, unspecified formulation 2001 completed Not Available [facility] 04/25/2023 05:50:54 DTaP, unspecified formulation 01/31/2005 completed Not Available [facility] 04/25/2023 05:50:54 DTaP, unspecified formulation 2001 completed Not Available [facility] 04/25/2023 05:50:54 DTaP, unspecified formulation 04/13/2002 completed Not Available [facility] 04/25/2023 05:50:54 DTaP, unspecified formulation 2001 completed Not Available [facility] 04/25/2023 05:50:55 meningococcal ACWY, unspecified formulation 03/26/2013 completed Not Available [facility] 04/25/2023 05:50:55 meningococcal ACWY, unspecified formulation 05/26/2018 completed Not Available [facility] 04/25/2023 05:50:55 pneumococcal, unspecified formulation 2001 completed Not Available [facility] 04/25/2023 05:50:55 pneumococcal, unspecified formulation 2001 completed Not Available [facility] 04/25/2023 05:50:55 pneumococcal, unspecified formulation 2001 completed Not Available [facility] 04/25/2023 05:50:55 Tdap 02/22/2013 completed Not Available [facility] 05:50:55 HPV, unspecified formulation 08/23/2013 completed Not Available [facility] 04/25/2023 05:50:56 HPV, unspecified formulation 02/22/2013 completed Not Available [facility] 04/25/2023 05:50:56 HPV, unspecified formulation 03/26/2013 completed Not Available [facility] 04/25/2023 05:50:56 Hib, unspecified formulation 2001 completed Not Available [facility] 04/25/2023 05:50:56 Hib, unspecified formulation 2001 completed Not Available [facility] 04/25/2023 05:50:56 Hib, unspecified formulation 04/13/2002 completed Not Available [facility] 04/25/2023 05:50:56 Hib, unspecified formulation 2001 completed Not Available [facility] 04/25/2023 05:50:56 varicella 01/12/2002 completed Not Available [facility] 05:50:56 varicella 02/04/2008 completed Not Available [facility] 05:50:57 SARS-COV-2 (COVID-19) vaccine, UNSPECIFIED 07/20/2020 completed Not Available [facility] 04/25/2023 05:50:57 SARS-COV-2 (COVID-19) vaccine, UNSPECIFIED 09/13/2020 completed Not Available [facility] 04/25/2023 05:50:57 Hep B, unspecified formulation 07/08/2002 completed Not Available [facility] 04/25/2023 05:50:57 Hep B, unspecified formulation 2001 completed Not Available [facility] 04/25/2023 05:50:57 Hep B, unspecified formulation 2001 completed Not Available [facility] 04/25/2023 05:50:57 Hep A, unspecified formulation 04/08/2017 completed Not Available [facility] 04/25/2023 05:50:57 Hep A, unspecified formulation 05/26/2018 completed Not Available [facility] 04/25/2023 05:50:58 influenza, unspecified formulation 07/13/2019 completed Not Available [facility] 04/25/2023 05:50:58 influenza, unspecified formulation 03/31/2020 completed Not Available [facility] 04/25/2023 05:50:58 influenza, unspecified formulation 04/08/2017 completed Not Available [facility] 04/25/2023 05:50:58 influenza, unspecified formulation 05/26/2018 completed Not Available [facility] 04/25/2023 05:50:58 polio, unspecified formulation 01/31/2005 completed Not Available [facility] 04/25/2023 05:50:58 polio, unspecified formulation 2001 completed Not Available [facility] 04/25/2023 05:50:58 polio, unspecified formulation 04/13/2002 completed Not Available [facility] 04/25/2023 05:50:58 polio, unspecified formulation 2001 completed Not Available [facility] 04/25/2023 05:50:59 typhoid, unspecified formulation 07/21/2018 completed Not Available [facility] 04/25/2023 05:50:59 influenza, unspecified formulation 02/27/2023 completed Not Available [facility] 06/27/2023 05:31:42 Past Encounters Encounter ID Performer Location Encounter Start Date Encounter Closed Date Diagnosis/Indication Diagnosis SNOMED-CT Code Diagnosis ICD10 Code [id number] Liberty Sharp RN [address] [address] 12/24/2023 11:19:44 12/24/2023 12:30:26 History and physical examination, sports participation 811345328 Z02.5 Tuberculos is screening 230485477 Z11.1 [id number] SAGRARIO LEE PA-C [address] [place] [address] 12/26/2023 13:13:11 12/26/2023 13:20:51 Tuberculosis screening 071850478 Z11.1 Health Concerns Section Related Observation LastModified by Organization Detai ls LastModified Time None Recorded Concern Status LastModified by Organization Details LastModified Time None Recorded Payers Encounter Date Sequence Insurance Name Policy Number Policy Ovalle Covered Member ID Ovalle Member ID Guarantor Name 12/26/2023 1 [employer] - CHOICE (POS II) [id number] Dolly Dickson [id number] Amisha Dickson Notes Date Note Type Note Provider Name and Address Organization Details Recorded Time 12/26/2023 text/html HPI Notes: Patient presents for PPD Read: Date and time PPD placed: 12/24/2023 12:30 PM Date and time of this readin12/26/2023 01:20 PM SAGRARIO LEE PA-C [address], [place], [address], [facility]. 12/26/2023 13:22:53 OBGyn Episode No OBEpisode recorded.
--- OUTSIDE RECORDS SUMMARY | 2024-03-15 21:32 | XMS_ITS | Encounter Summary ---
[place] [address] Care Team Providers Care Preventive Medicine Specialist Name Role Phone Aron Mo MD, Lisa Primary Care Provider [phone] Reason for Visit * Reason Comments Follow-up Encounter Details Date Type Department Care Team (Late st Contact Info) Description 04/29/2016 9:15 AM EST Office Visit Dermatology at [address] [address] Efra Frazier MD [address] [facility], [facility] [address] Acne vulgaris Social History Tobacco Use Types Packs/Day Years Used Date Smoking Tobacco: Never Sex and Gender Information Value Date Recorded Sex Assigned at Not on file Gender Identity Not on file Sexual Orientation Not on file documented as of this encounter Progress Notes * Efra Frazier MD - 04/29/2016 9:15 AM EST PROBLEMS: 1. Follow up acne vulgaris. 2. Status post headaches triggered by minocycline. Amisha follows today with her sister, Ayala. In January, I had bumped her up from 50 to 100 mg b.i.d. of minocycline and by February, she was having issues with headaches. I recommended that her minocycline be stopped and we started just using topically clindamycin 1% solution in the morning and tretinoin 0.15 cream, (which she was already using), in the evening. She is here today for a repeat check. She is still having issues on her face. PHYSICAL EXAMINATION: Reveals a pleasant 16-year-old who has mild to moderate open and closed comedonal acne over the central forehead and of the central face with mild inflammatory lesions. There is some malar spread laterally as well. She has no involvement of her back, shoulders, or chest she states. She has significant cover up makeup in place to date to hide her acne. ASSESSMENT AND PLAN: Acne vulgaris, mild to moderate comedonal, and mild inflammatory in a 16-year-old. a. Recommend that we increase her evening strength tretinoin from 0.1% cream to 0.01% gel. Apply on an at bedtime basis, 1/2 hour after washing, 15 grams dispensed with 3 refills. This will be called in to [facility] in [facility]. . Recommend that I see her again in another 6 weeks for repeat check on her progress with this. If not seeing improvement, may need to be concerned also if we can further advance to 0.025% gel. CC: Steve Sotelo MD documented in this encounter Plan of Treatment Not on file documented as of this encounter Visit Diagnoses Diagnosis Acne vulgaris Other acne documented in this encounter Care Teams Preventive Medicine Specialist Relationship Specialty Start Date End Date Lisa Sharp MD [address] [place] [address] PCP - General 05/08/10 04/14/17 documented as of this encounter
--- OUTSIDE RECORDS SUMMARY | 2024-03-15 21:32 | XMS_ITS | Encounter Summary ---
[place] [address] Care Team Providers Care Student Accounts Coordinator Name Role Phone Betty Nascimento Jyoti KAY Primary Care Provider [phone] Reason for Visit * Reason Comments Follow-up Acne Encounter Details Date Type Department Care Team (Late st Contact Info) Description 06/03/2017 8:30 AM EST Office Visit Dermatology at [address] [address] Efra Frazier MD [address] [facility], [facility] [place] [address] Acne vulgaris Social History Tobacco Use Types Packs/Day Years Used Date Smoking Tobacco: Never Smokeless Tobacco: Never Sex and Gender Information Value Date Recorded Sex Assigned at Not on file Gender Identity Not on file Sexual Orientation Not on file documented as of this encounter Progress Notes * Efra Frazier MD - 06/03/2017 8:30 AM EST PROBLEM: 1. Followup acne vulgaris. 2. Status post headaches triggered by minocycline. Amisha follows today with her sister, Ayala. Unfortunately, she did not see improvement with the topicals, and so has not been using anything for some time. We have been through minocycline, clindamycin solution, tretinoin 0.1% cream, and tretinoin 0.01% gel. Physical examination reveals a pleasant, now 17-year-old who has moderate open and closed acne vulgaris over central forehead and the cheeks. She does now have some mild involvement on the back, shoulders, and chest, which is new for her. A/P: Acne vulgaris, moderate comedonal, mild to moderate inflammatory, not responsive to standard therapies in a 17-year-old. a. Recommend that we advance to isotretinoin. The patient weighs 61 kg. We will start her in 1 month on 30 mg 1 p.o. q. day, and then advance to 1 p.o. b.i.d. after that. b. Today, check urine test. c. The iPLEDGE booklet given and iPLEDGE program discussed. Side effects of isotretinoin discussed. The patient's questions answered. d. Recommend that I see her again in 1 month, with baseline labs, including test, at that time. Then initiate isotretinoin for a 5-month course. The patient's control methods will be subcutaneous implant plus male latex condom. She denies being sexually active currently. Return to clinic reminder here in 1 month. Cc: Steve Sotelo MD documented in this encounter Plan of Treatment Not on file documented as of this encounter Visit Diagnoses Diagnosis Acne vulgaris Other acne documented in this encounter Care Teams Student Accounts Coordinator Relationship Specialty Start Date End Date Betty Nascimento APRN [address] [place] [address] PCP - General Pediatrics 04/15/17 09/01/18 documented as of this encounter
--- OUTSIDE RECORDS SUMMARY | 2024-03-15 21:32 | XMS_ITS | Encounter Summary ---
Author Organization [facility] [place] [address] Care Team Providers Care Microbiology Soil Scientist Name Role Phone Jax Mcfarland MD Primary Care Provider [phone] Encounter Details Date Type Department Care Team (Late st Contact Info) Description 07/09/2021 Orders Only Occupational Medicine at [facility] [place] [address] Fidelia Orozco, [facility] [place] [address] Social History Tobacco Use Types Packs/Day Years Used Date Smoking Tobacco: Never Smokeless Tobacco: Never Sex and Gender Information Value Date Recorded Sex Assigned at Not on file Gender Identity Not on file Sexual Orientation Not on file documented as of this encounter Plan of Treatment Not on file documented as of this encounter Procedures Procedure Name Priority Date/Time Associated Diagnosis Comments RUBELLA ANTIBODY, IGG Routine 07/09/2021 11:16 AM EST documented in this encounter Results * Rubella Antibody, IgG (07/09/2021 11:16 AM EST) Rubella Antibody IgG Positive Positive [facility] Comment: Please note: ??A positive result for this assay indicates that antibody levels are >or= 10.0 IU/mL and is considered to be an indicator of positive immune status. Blood Venous Draw / Unknown 07/09/2021 11:16 AM EST 07/09/2021 11:23 AM EST Narrative Resulting Agency Comment Spec In Lab Fidelia Orozco WAITRESS CHEMISTRY ORDERABLES Performing Organization Address City/State/[facility] Co de Phone Number [facility] [place] [address] documented in this encounter Visit Diagnoses Not on filedocumented in this encounter Care Teams Microbiology Soil Scientist Relationship Specialty Start Date End Date Jax Mcfarland MD [address] [place] [address] PCP - General Pediatrics 09/02/18 10/29/21 documented as of this encounter
--- OUTSIDE RECORDS SUMMARY | 2024-03-15 21:32 | XMS_ITS | Encounter Summary ---
[place] [address] Care Team Providers Care Catcher Helper Name Role Phone Betty Nascimento APRN Primary Care Provider [phone] Encounter Details Date Type Department Care Team (Late st Contact Info) Description 07/04/2017 Refill Dermatology at [address] [address] Marta Yee, LEAD MEDICAL TECHNOLOGIST Social History Tobacco Use Types Packs/Day Years [...] on filedocumented in this encounter Care Teams Catcher Helper Relationship Specialty Start Date End Date Betty Nascimento [place] [address] PCP - General Pediatrics 04/15/17 09/01/18 documented as of this encounter
--- OUTSIDE RECORDS SUMMARY | 2024-03-15 21:32 | XMS_ITS | Data Portability ---
Author Organization [place] - [facility] [place] [address] Assessment Encounter Date Assessment Date Assessment LastModified by Organization Details LastModified Time 12/26/2023 12/26/2023 PPD read at 0mm Result NEGATIVE Results given to patient and documented within the EMR. Not available 12/26/2023 13:19:41 Plan of Treatment Reminders Order Date Submit Date Provider Last Modified By Organization Details Last Modified Time Details Appointments None recorded. Lab influenza virus A + B + SARS-CoV-2 (COVID19) Ag panel, rapid IA, upper respiratory specimen 2023 024 [facility], [address] [place] [address], [address], [place], [address], 10:17:51 Referral None recorded. Procedures None recorded. Surgeries None recorded. Imaging None recorded. Medication Orders ibuprofen 200 mg tablet 2023 024 [email or web address] [facility], [address] [place], [address], 4 10:17:51 albuterol sulfate HFA 90 mcg/actuati on aerosol inhaler 2023 024 RYANN [facility], [address] [place], [address], 4 11:30:50 Aplisol 5 tub. unit/0.1 mL intradermal injection solution 2023 024 [email or web address] [facility], [address] [place], [address], 12:43:29 Patient TargetsNo targets recorded. Patient Instructions Encounter Date Encounter Id Patient Instructions Last Modified By Organization Details Last Modified Time 08/08/2023 [id number] 1. You are positive for influenza A. Negative for COVID. 2. Given your coughing fits and shortness of breath I have sent prescription for an albuterol inhaler and spacer to your pharmacy of choice. 3. Given the length of time you have had symptoms I do not feel that antiviral medications would be helpful at this time. At this point the mainstay treatment is fluids and rest. 4. Please be aware I do expect symptoms will linger for several more days and then will very slowly start to improve. If you are not improving, having worsening or develop other concerning symptoms please seek follow-up as needed Not available 08/08/2023 10:07:31 12/24/2023 [id number] 1. TB test was placed today Friday, 12/23 at approximately 12:30. This test needs [...] 12/24/2023 12:19:26 Reason for Referral None Reported. Results Created Date Observation Date Name Description Value Unit Range Abnormal Flag Note LastModifiedBy Organization Detail LastModifiedTime 08/08/19 24 08/08/2023 influ haley virus A + B + SARS- CoV-2 (COVI D19) Ag panel , rapid IA, upper respi rator y speci men Influenza A positi ve Not Available [address], [place], [address], 08/08/2023 09:51:20 08/08/19 24 08/08/2023 influ haley virus A + B + SARS- CoV-2 (COVI D19) Ag panel , rapid IA, upper respi rator y speci men Influenza B negati ve Not Available [address], [place], [address], 08/08/2023 09:51:20 08/08/19 24 08/08/2023 influ haley virus A + B + SARS- CoV-2 (COVI D19) Ag panel , rapid IA, upper respi rator y speci men SARS-COV-2 negati ve Not Available [address], [place], [address], 08/08/2023 09:51:20 Result Notes None recorded. Problems Name Problem SNOMED Code Status Onset Date Resolution Date Notes Provider Name and Address Organization Details Recorded Time Cellulit is of toe of right foot 02987370628 065780 Active 2021 Problem Code: L03.031; Problem Code Type: ICD-10; Not Available [facility] 3 05:36:29 Cellulit is of toe of left foot 38855232688 237268 Active 2021 Problem Code: L03.032; Problem Code Type: ICD-10; Not Available [facility] 3 05:36:29 Noninfla mmatory disorder of the vagina 56946239 Completed 202204/13/2023 Problem Code: N89.8; Problem Code Type: ICD-10; Not Available [facility] 4 05:35:46 Screenin g for disorder Completed 202204/13/2023 Problem Code: Z13.9; Problem Code Type: ICD-10; Not Available [facility] 4 05:35:46 History and physical examinat ion, sports particip ation Completed 202204/13/2023 Problem Code: Z02.5; Problem Code Type: ICD-10; Not Available [facility] 4 05:35:46 Influenz a caused by Influenz a A virus 757012654 Active [address], [place], [address] , [place] [facility] 4 10:15:49 Problem Notes None recorded. Medical Equipment None Reported. Allergies Allergen ID Allergen Name Allergen Category Reaction Reaction Severity Criticality Documentation Date Start Date Code Code System Note Provider Name and Address Organization Details Recorded Time 47382 sesame extract food,medi cation dyspnea mild Not available 06/27/20232022 11048 60 RxNorm VAMSHI Bradley, [facility] 4 09:40:06 Medications Name Sig Start Date [...] height Body mass index (BMI) Body weight Body temperature Respiratory rate Oxygen saturation Oxygen saturation in Arterial blood by Pulse oximetry Heart rate Systolic blood pressure Diastolic blood pressure Provider Name and Address Organization Details Last Updated DateTime 4 165.1 cm 26.6 kg/m2 06605.7 8 g 101.5 [degF] 18 /min 98 % 98 % 116 /min 107 mm[Hg] 76 mm[Hg] Liberty Sharp RN [facility] 09:39:47 Date Recorded Body height Body mass index (BMI) Body weight Respiratory rate Body temperature Oxygen saturation Oxygen saturation in Arterial blood by Pulse oximetry Heart rate Systolic blood pressure Diastolic blood pressure Provider Name and Address Organization Details Last Updated DateTime 163.83 cm 29.3 kg/m2 46371.5 8 g 17 /min 98.2 [degF] 98 % 98 % 86 /min 105 mm[Hg] 72 mm[Hg] STAN BARNEY MA [facility] 11:32:16 Date Recorded Body height Provider Name an d Address Organization Details Last Updated DateTime 12/26/[address], [place], [address], [facility] 12/26/2023 13:18:45 Social History Question Answer Notes LastModified by Organizat ion Details LastModified Time Tobacco Smoking Status Never Smoker Liberty Sharp RN [facility], [facility] 08/08/2023 09:40:46 What Was The Date Of Your Most Recent Tobacco Screening? 12/24/2023 Information not available 12/24/2023 Has Tobacco Cessation Counseling Been Provided? Yes Information not available 08/08/2023 On What Date Was Tobacco Cessation Counseling Provided? 12/24/2023 Information not available 12/24/2023 Do You Or [...] Recorded Time MMR 01/12/2002 completed Not Available [facility] 05:50:54 MMR 01/31/2005 completed Not Available [facility] 05:50:54 DTaP, unspecified formulation 2001 completed Not Available [facility] 04/25/2023 05:50:54 DTaP, unspecified formulation 01/31/2005 completed Not Available [facility] 04/25/2023 05:50:54 DTaP, unspecified formulation 2001 completed Not Available [facility] 04/25/2023 05:50:54 DTaP, unspecified formulation 04/13/2002 completed Not Available [facility] 04/25/2023 05:50:54 DTaP, unspecified formulation 2001 completed Not Available [facility] 04/25/2023 05:50:55 meningococcal ACWY, unspecified formulation 03/26/2013 completed Not Available [facility] 04/25/2023 05:50:55 meningococcal ACWY, unspecified formulation 05/26/2018 completed Not Available [facility] 04/25/2023 05:50:55 pneumococcal, unspecified formulation 2001 completed Not Available [facility] 04/25/2023 05:50:55 pneumococcal, unspecified formulation 2001 completed Not Available [facility] 04/25/2023 05:50:55 pneumococcal, unspecified formulation 2001 completed Not Available [facility] 04/25/2023 05:50:55 Tdap 02/22/2013 completed Not Available [facility] 05:50:55 HPV, unspecified formulation 08/23/2013 completed Not Available [facility] 04/25/2023 05:50:56 HPV, unspecified formulation 02/22/2013 completed Not Available [facility] 04/25/2023 05:50:56 HPV, unspecified formulation 03/26/2013 completed Not Available [facility] 04/25/2023 05:50:56 Hib, unspecified formulation 2001 completed Not Available [facility] 04/25/2023 05:50:56 Hib, unspecified formulation 2001 completed Not Available [facility] 04/25/2023 05:50:56 Hib, unspecified formulation 04/13/2002 completed Not Available [facility] 04/25/2023 05:50:56 Hib, unspecified formulation 2001 completed Not Available [facility] 04/25/2023 05:50:56 varicella 01/12/2002 completed Not Available [facility] 05:50:56 varicella 02/04/2008 completed Not Available [facility] 05:50:57 SARS-COV-2 (COVID-19) vaccine, UNSPECIFIED 07/20/2020 completed Not Available [facility] 04/25/2023 05:50:57 SARS-COV-2 (COVID-19) vaccine, UNSPECIFIED 09/13/2020 completed Not Available [facility] 04/25/2023 05:50:57 Hep B, unspecified formulation 07/08/2002 completed Not Available [facility] 04/25/2023 05:50:57 Hep B, unspecified formulation 2001 completed Not Available [facility] 04/25/2023 05:50:57 Hep B, unspecified formulation 2001 completed Not Available [facility] 04/25/2023 05:50:57 Hep A, unspecified formulation 04/08/2017 completed Not Available [facility] 04/25/2023 05:50:57 Hep A, unspecified formulation 05/26/2018 completed Not Available [facility] 04/25/2023 05:50:58 influenza, unspecified formulation 07/13/2019 completed Not Available [facility] 04/25/2023 05:50:58 influenza, unspecified formulation 03/31/2020 completed Not Available [facility] 04/25/2023 05:50:58 influenza, unspecified formulation 04/08/2017 completed Not Available [facility] 04/25/2023 05:50:58 influenza, unspecified formulation 05/26/2018 completed Not Available [facility] 04/25/2023 05:50:58 polio, unspecified formulation 01/31/2005 completed Not Available [facility] 04/25/2023 05:50:58 polio, unspecified formulation 2001 completed Not Available [facility] 04/25/2023 05:50:58 polio, unspecified formulation 04/13/2002 completed Not Available [facility] 04/25/2023 05:50:58 polio, unspecified formulation 2001 completed Not Available [facility] 04/25/2023 05:50:59 typhoid, unspecified formulation 07/21/2018 completed Not Available [facility] 04/25/2023 05:50:59 influenza, unspecified formulation 02/27/2023 completed Not Available [facility] 06/27/2023 05:31:42 Past Encounters Encounter ID Performer Location Encounter Start Date Encounter Closed Date Diagnosis/Indication Diagnosis SNOMED-CT Code Diagnosis ICD10 Code [id number] SAGRARIO LEE PA-C [address] [address] 08/08/2023 09:15:32 08/08/2023 10:36:04 Influenza caused by Influenza A virus 643898205 J09.X2 [id number] Liberty Sharp RN [address] [address] 12/24/2023 11:19:44 12/24/2023 12:30:26 History and physical examination, sports participation 245687206 Z02.5 Tuberculos is screening 122190912 Z11.1 [id number] SAGRARIO LEE PA-C [address] [address] 12/26/2023 13:13:11 12/26/2023 13:20:51 Tuberculosis screening 394244385 Z11.1 Health Concerns Section Related Observation LastModified by Organization Detai ls LastModified Time None Recorded Concern Status LastModified by Organization Details LastModified Time None Recorded Advance Directives Directive None Recorded Payers Encounter Date Sequence Insurance Name Policy Number Policy Ovalle Covered Member ID Ovalle Member ID Guarantor Name 08/08/2023 1 [employer] - CHOICE (POS II) [id number] Dolly Dickson [id number] Amisha Means Randolph 12/24/2023 1 [employer] - CHOICE (POS II) [id number] Dolly Dickson [id number] Amisha M Randolph 12/26/2023 1 [employer] - CHOICE (POS II) [id number] Dolly Dickson [id number] Amisha Miguelangel Randolph Notes Date Note Type Note Provider Name and Address Organization Details Recorded Time 08/08/2023 text/html HPI Notes: Alejandra salgado is a 23-year-old female who presents with ill symptoms that began on 08/05, today is now 08/08. Her mother developed ill symptoms first. They have had very similar symptoms. And is having headache, fever, febrile upon arrival, cough which has been productive with frequent bronchospasm. Has not been wheezing but has felt short of breath. She has general body aches which seems to be focused on the back and neck. She has had nasal drainage. She has had decreased appetite but has been drinking fluids adequately. She has had some nausea but no vomiting. Some diarrhea. Has been using DayQuil and NyQuil to help with symptoms. SAGRARIO LEE PA-C [address], [place], [address], [facility]. 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 She played basketball [...] will help provide that. Liberty Sharp RN [facility], [facility]. 12/24/2023 12:31:01 12/26/2023 text/html HPI Notes: Cammy painting presents for PPD Read: Date and time PPD placed: 12/24/2023 12:30 PM Date and time of this readin12/26/2023 01:[address], [place], [address], [facility]. 12/26/2023 13:22:53 OBGyn Episode No OBEpisode recorded.
--- OUTSIDE RECORDS SUMMARY | 2024-03-15 21:32 | XMS_ITS | Encounter Summary ---
[place] [address] Care Team Providers Care Inspector Health Care Facilities Name Role Phone Jax Mcfarland MD Primary Care Provider [phone] Reason for Visit * Reason Comments Acne Encounter Details Date Type Department Care Team (Late st Contact Info) Description 08/24/2019 4:45 PM EDT Office Visit Dermatology at [address] [address] Efra Frazier MD [address] [facility], [facility] [place] [address] Acne vulgaris Social History Tobacco Use Types Packs/Day Years Used Date Smoking Tobacco: Never Smokeless Tobacco: Never Sex and Gender Information Value Date Recorded Sex Assigned at Not on file Gender Identity Not on file Sexual Orientation Not on file documented as of this encounter Progress Notes * Efra Frazier MD - 08/24/2019 4:45 PM EDT Problem: 1. Follow-up acne vulgaris ready to begin second course of isotretinoin today 2. ??Status post a 5-month course of isotretinoin completed November 2017 3. ??History of headaches triggered by minocycline Amisha follows up and is ready to begin her medication. She has the codes to use new password for [employer] program. She has her I pledge number. Her control methods will be IUD and male latex condoms for the 5-month duration of the course. Physical examination reveals a pleasant 19-year-old who has diffuse superficial acne vulgaris widely over the cheeks upper chest and back and moderate severity comedonal acne over the face. She does indeed have some ice pick scarring on the face. Assessment plan: Recurrent acne vulgaris following first course of isotretinoin, ready to begin second course today 1. Patient weighs 63 kg will start her now on 40 mg 1 p.o. twice daily for the first month. Dispense #60 call this into her [facility] in [place] 2. Patient's second urine test within 30 days was obtained today and was found to be negative. Reviewed I pledge program I pledge requirements. 3. Return to clinic in another month for repeat check. Cc: Jax Mcfarland MD documented in this encounter Plan of Treatment Not on file documented as of this encounter Visit Diagnoses Diagnosis Acne vulgaris Other acne documented in this encounter Care Teams Inspector Health Care Facilities Relationship Specialty Start Date End Date Jax Mcfarland MD [address] [place] [address] PCP - General Pediatrics 09/02/18 10/29/21 documented as of this encounter
--- OUTSIDE RECORDS SUMMARY | 2024-03-15 21:32 | XMS_ITS | Encounter Summary ---
[place] [address] Care Team Providers Care High Scaler Name Role Phone Jessica Polanco APRN Primary Care Provider [phone] Encounter Details Date Type Department Care Team (Late st Contact Info) Description 09/05/2023 Telephone [place] [address] Sreekanth Arreola Social History Tobacco Use Types Packs/Day Years Used Date Smoking Tobacco: Never Smokeless Tobacco: Never Sex and Gender Information Value Date Recorded Sex Assigned at Not on file Gender Identity Not on file Sexual Orientation Not on file documented as of this encounter Miscellaneous Notes * Telephone Encounter - Sreekanth Arreola - 09/05/2023 9:40 AM EDT Inbound/Outbound: Outbound Spoke to Patient/Left Message: Left message Notes: Outbound call to patient to schedule motility lab testing from referral. Left message askingfor callback to schedule. Return calls can be handled by: Motility Lab Greeting Card Editor documented in this encounter Plan of Treatment Not on file documented as of this encounter Visit Diagnoses Not on filedocumented in this encounter Care Teams High Scaler Relationship Specialty Start Date End Date Jessica Polanco APRN [address] [place] [phone] PCP - General Family Medicine 07/03/23 documented as of this encounter
--- OUTSIDE RECORDS SUMMARY | 2024-03-15 21:32 | XMS_ITS | Encounter Summary ---
[place] [address] Care Team Providers Care Hospital Librarian Name Role Phone Kelly Nascimentonda Jyoti KAY Primary Care Provider [phone] Reason for Visit * Reason Comments Follow-up Acne Encounter Details Date Type Department Care Team (Late st Contact Info) Description 07/04/2017 11:30 AM EST Office Visit Dermatology at [address] [address] Efra Frazier MD [address] [facility], [facility] [place] [address] Acne vulgaris Social History Tobacco Use Types Packs/Day Years Used Date Smoking Tobacco: Never Smokeless Tobacco: Never Sex and Gender Information Value Date Recorded Sex Assigned at Not on file Gender Identity Not on file Sexual Orientation Not on file documented as of this encounter Progress Notes * Efra Frazier MD - 07/04/2017 11:30 AM EST PROBLEM: 1. Acne vulgaris, ready to begin isotretinoin for acne vulgaris. 2. History of headaches triggered by minocycline. Amisha follows today with her sister, Ayala. She has waited the required 30 days and has had 2 negative tests. She is ready to begin isotretinoin. She has read through the Application [employer] booklet and understands the requirements. Physical examination reveals a pleasant 17-year-old who continues to have deep-seated scarring acne vulgaris on the lateral cheeks bilaterally, but also involvement on the lateral shoulders and upper back. She has many open and closed comedones as well as inflammatory lesions. A/P: Acne vulgaris, mixed inflammatory, comedonal, moderate with scarring in a 17-year-old. a. Recommend that we begin isotretinoin 30 mg 1 p.o. q. day for the first month; #30 will be called into her [facility]. The patient weighs 61 kg. b. Return to clinic in 1 month. Isotretinoin labs will be repeated prior to that visit. The patient knows that she will need to get repeat labs just prior to that visit. We will then initiate b.i.d. dosing of isotretinoin to complete a 5-month course. c. The patient has already discontinued her minocycline and is currently using no creams or oral medications for her acne. Her control methods will be subcutaneous implant plus male latex condoms. She is not sexually active currently. Cc: Betty Nascimento APRN documented in this encounter Plan of Treatment Not on file documented as of this encounter Visit Diagnoses Diagnosis Acne vulgaris Other acne documented in this encounter Care Teams Hospital Librarian Relationship Specialty Start Date End Date Betty Nascimento APRN [address] [place] [address] PCP - General Pediatrics 04/15/17 09/01/18 documented as of this encounter
--- OUTSIDE RECORDS SUMMARY | 2024-03-15 21:32 | XMS_ITS | Encounter Summary ---
[place] [address] Care Team Providers Care Higher Level Teaching Assistant Name Role Phone Jessica Polanco APRN Primary Care Provider [phone] Reason for Referral * Consultation (Routine) - Authorized Specialty Diagnoses / Procedures Referred By Yulissa reese Referred To Contact Gastroenterology Diagnoses Other constipation GI FOR CHRONCI CONSTIPATION, TRIED ALL OTCS, AMITIZIA,TRULANCE AND LINZESS WITHOUT GREAT RELIEF Mia Smith, PRESS SM[employer] HELPER [address] [place] [address] [facility] [address] [place] [address] Referral ID Status Reason Start Date Expiration Date Visits Requested Visits Authorized [id number] Authorized Consult, Test & Treat PCP Updated and/or Approved 06/26/2023 06/25/2024 6 6 Encounter Details Date Type Department Care Team (Late st Contact Info) Description 07/03/2023 Transcribe Orders eDH Incoming Referrals [phone] Jessica Polanco APRN [address] [phone] Other constipation Social History Tobacco Use Types Packs/Day Years Used Date Smoking Tobacco: Never Smokeless Tobacco: Never Sex and Gender Information Value Date Recorded Sex Assigned at Not on file Gender Identity Not on file Sexual Orientation Not on file documented as of this encounter Plan of Treatment Scheduled Referrals Name Type Priority Associated Diagnoses Order Schedule Referral to Gastroenterology Outpatient Referral Routine Other constipation Ordered: 07/03/2023 documented as of this encounter Visit Diagnoses Diagnosis Other constipation documented in this encounter Care Teams Higher Level Teaching Assistant Relationship Specialty Start Date End Date Jessica Polanco APRN [address] [place] [phone] PCP - General Family Medicine 07/03/23 documented as of this encounter
--- OUTSIDE RECORDS SUMMARY | 2024-03-15 21:32 | XMS_ITS | Clinical Summary ---
Author Organization [facility] Address [facility] [place] [address] Care Team Providers Care Log Roller Name Role Phone Collin Jessica Jeong APRN Primary Care Provider [phone] Allergies No known active allergies Medications Medication Sig Dispensed Refills Start Date End Date Status FLUoxetine (PROzac) 20 mg Capsule 07/13/2019 Active metroNIDAZOLE (Flagyl) 500 mg Tablet 09/01/2019 Active polymyxin B sulf-trimethoprim (POLYTRIM) Drops 09/19/2019 Active sulfamethoxazole-trim ethoprim DS (Bactrim DS) 800-160 mg Tablet 10/25/2019 Act rico ISOtretinoin (ACCUTANE) 40 mg Capsule Take one tablet by mouth twice daily. 60 capsule 01/07/2020 Active Active Problems Problem Noted Date Diagnosed Date Acne vulgaris 04/17/2015 Nevus 04/17/2015 Syncope Overview (03/09/2018): 02-24-18 Reports four syncopal events over the past four weeks. Occurred with walking . Associated symptoms include headache. Normal evaluation and labs by PCP 02-26-18 EKG: sinus rhythm 03-04-19 CARDIO EVAL: the exam was consistent with a neurally mediated or vasovagal mechanism for the syncope.?? There is nothing to suggest underlying heart disease. 03-04-18 ZIO: ordered. Insurance approval on 03-09-18. Device will be mailed to home No SBE precautions. No activity restrictions. Follow up pending ZIO results Febrile convulsion Croup Adopted Immunizations Name Administration Dates Next Due Influenza PF, Split 07/09/2021 Tdap 07/09/2021 Family History Medical History Relation Comments Other Father adopted Diabetes Mother Diabetes Sister Relation Status Comments Father Alive Mother Alive Sister Alive Social History Tobacco Use Types Packs/Day Years Used Date Smoking Tobacco: Never Smokeless Tobacco: Never Sex and Gender Information Value Date Recorded Sex Assigned at Not on file Gender Identity Not on file Sexual Orientation Not on file Last Filed Vital Signs Vital Sign Reading [...] Mass Index 25.04 03/04/2018 8:52 AM EDT Plan of Treatment Health Maintenance Due Date Last Done Comments Chlamydia Screening 01/10/2016 HPV vaccine (1 - 3-dose series) 01/10/2016 HIV screen 2019 Hepatitis C Screening 2019 PAP Smear 2022 Covid-19 Vaccine (1 - season) 2024 Influenza (Flu) vaccine (1 o f 1 - Influenza standard series) 02/15/2024 07/09/2021 Tetanus/Diphtheria/Pertussis Vaccines (2 - Td or Tdap) 07/09/2031 07/09/2021 Care Teams Log Roller Relationship Specialty Start Date End Date Jessica Polanco APRN [address] [place] [phone] PCP - General Family Medicine 07/03/23
--- OUTSIDE RECORDS SUMMARY | 2024-03-15 21:32 | XMS_ITS | Encounter Summary ---
[place] [address] Care Team Providers Care Swing Tender Name Role Phone Jax Mcfarland MD Primary Care Provider [phone] Encounter Details Date Type Department Care Team (Late st Contact Info) Description 12/13/2019 Refill Dermatology at [address] [phone] Marta Yee, MEAT PRODUCTS DEMONSTRATOR Social History Tobacco Use Types Packs/Day Years [...] on filedocumented in this encounter Care Teams Swing Tender Relationship Specialty Start Date End Date Jax Mcfarland MD [address] [place] [address] PCP - General Pediatrics 09/02/18 10/29/21 documented as of this encounter
--- OUTSIDE RECORDS SUMMARY | 2024-03-15 21:32 | XMS_ITS | Encounter Summary ---
Author Organization [facility] [place] [address] Care Team Providers Care Audit Director Name Role Phone Jax Mcfarland MD Primary Care Provider [phone] Encounter Details Date Type Department Care Team (Late st Contact Info) Description 07/09/2021 Orders Only Occupational Medicine at [facility] [place] [address] Fidelia Orozco APRN [facility] [address] Social History Tobacco Use Types Packs/Day Years Used Date Smoking Tobacco: Never Smokeless Tobacco: Never Sex and Gender Information Value Date Recorded Sex Assigned at Not on file Gender Identity Not on file Sexual Orientation Not on file documented as of this encounter Plan of Treatment Not on file documented as of this encounter Procedures Procedure Name Priority Date/Time Associated Diagnosis Comments VARICELLA ZOSTER ANTIBODY, IGG Routine 07/09/2021 11:16 AM EST documented in this encounter Results * Varicella zoster Antibody, IgG (07/09/2021 11:16 AM EST) Varicella Zoster Antibody IgG Pos [facility] Blood Venous Draw / Unknown 07/09/2021 11:16 AM EST 07/10/2021 6:22 AM EST Narrative Resulting Agency Comment Spec In Lab Fidelia Orozco GENERAL MATCHER IMMUNOLOGY ORDERABLE S [facility] [place] [address] documented in this encounter Visit Diagnoses Not on filedocumented in this encounter Care Teams Audit Director Relationship Specialty Start Date End Date Jax Mcfarland MD [address] [place] [address] PCP - General Pediatrics 09/02/18 10/29/21 documented as of this encounter
--- OUTSIDE RECORDS SUMMARY | 2024-03-15 21:32 | XMS_ITS | Encounter Summary ---
Author Organization [facility] [place] [address] Care Team Providers Care Ammunition Assembly I Laborer Name Role Phone Betty Nascimento Jyoti KAY Primary Care Provider [phone] Encounter Details Date Type Department Care Team (Late st Contact Info) Description 03/03/2018 Orders Only Pediatric Cardiology at [facility] [place] [address] Elio Miller [place] [address] Syncope, unspecified syncope type (Primary Dx) Social History Tobacco Use Types Packs/Day Years Used Date Smoking Tobacco: Never Smokeless Tobacco: Never Sex and Gender Information Value Date Recorded Sex Assigned at Not on file Gender Identity Not on file Sexual Orientation Not on file documented as of this encounter Plan of Treatment Not on file documented as of this encounter Results * EKG 12 Lead (03/04/2018 9:01 AM EDT) Ventricular rate 74 BPM MUSE SYSTEM Atrial Rate 74 BPM MUSE SYSTEM P-R Interval 122 ms MUSE SYSTEM QRS Duration 90 ms MUSE SYSTEM Q-T Interval 394 ms MUSE SYSTEM QTC Calculated (Bezet) 437 ms MUSE SYSTEM Calculated P [place] 52 degrees MUSE SYSTEM Calculated R [place] 50 degrees MUSE SYSTEM Calculated T [place] 23 degrees MUSE SYSTEM INTERPRETATION Normal sinus rhythm with sinus arrhythmia Normal ECG No previous ECGs available Confirmed by DO Miller Zachary C. ([id number]) on 03/04/2018 6:19:00 PM MUSE SYSTEM 03/04/2018 9:01 AM EDT 03/04/2018 6:19 PM EDT Elio Miller DO ECG ORDERABLES MUSE SYSTEM documented in this encounter Visit Diagnoses Diagnosis Syncope, unspecified syncope type- Primary documented in this encounter Care Teams Ammunition Assembly I Laborer Relationship Specialty Start Date End Date Betty Nascimento, DISTRICT COURT REPORTER [address] [place] [address] PCP - General Pediatrics 04/15/17 09/01/18 documented as of this encounter
--- OUTSIDE RECORDS SUMMARY | 2024-03-15 21:32 | XMS_ITS | Encounter Summary ---
[place] [address] Care Team Providers Care Paraprofessional Interpreter Name Role Phone Jax Mcfarland MD Primary Care Provider [phone] Reason for Visit * Reason Comments Acne Encounter Details Date Type Department Care Team (Late st Contact Info) Description 01/07/2020 9:45 AM EDT Office Visit Dermatology at [address] [address] Efra Frazier MD [address] [facility], [facility] [place] [address] Acne vulgaris Social History Tobacco Use Types Packs/Day Years Used Date Smoking Tobacco: Never Smokeless Tobacco: Never Sex and Gender Information Value Date Recorded Sex Assigned at Not on file Gender Identity Not on file Sexual Orientation Not on file documented as of this encounter Progress Notes * Efra Frazier MD - 01/07/2020 9:45 AM EDT Problem: 1. ??Follow-up acne vulgaris??status post 4 months of second course of isotretinoin. 2.?Status post a??5-month course of isotretinoin completed November 2017 3.?History of headaches triggered by minocycline Amisha follows up for 4-month check. She is been doing well. Her acne is quiescent and she not having any side effects. She has no headaches muscle aches or pains and just minimal dryness of her lips. She been taking 40 mg 1 p.o. twice daily. Physical examination confirms that her acne is quiescent. Face shoulders and back all are entirely clear of acne and there is no significant colitis. Assessment and plan: Acne vulgaris status post 4 months of isotretinoin, second course 1. Today at counseling confirmed was confirmed on the [[employer] website 2. #60 isotretinoin, 40 mg tablets, called into her [facility] pharmacy in [place] 3. Complete this course and then discontinue medication. Return to clinic here with MD on a as needed basis. Expressed optimism that she should this time have lasting results CC: Jax Mcfarland MD documented in this encounter Plan of Treatment Not on file documented as of this encounter Visit Diagnoses Diagnosis Acne vulgaris Other acne documented in this encounter Care Teams Paraprofessional Interpreter Relationship Specialty Start Date End Date Jax Mcfarland MD [address] [place] [address] PCP - General Pediatrics 09/02/18 10/29/21 documented as of this encounter
--- OUTSIDE RECORDS SUMMARY | 2024-03-15 21:32 | XMS_ITS | Encounter Summary ---
[place] [address] Care Team Providers Care Mud Analysis Operator Name Role Phone Aron Mo MD, Lisa Primary Care Provider [phone] Reason for Visit * Reason Comments Acne Skin Lesion Encounter Details Date Type Department Care Team (Late st Contact Info) Description 04/17/2015 4:00 PM EST Office Visit Dermatology at [place] [address] [facility] [place] [address] Efra Frazier MD [address] [facility] [place] [address] Acne vulgaris; Nevus Social History Tobacco Use Types Packs/Day Years Used Date Smoking Tobacco: Never Assessed Sex and Gender Information Value Date Recorded Sex Assigned at Not on file Gender Identity Not on file Sexual Orientation Not on file documented as of this encounter Patient Instructions * Patient Instructions* Zonia Carlson LPN - 04/17/2015 4:08 PM EST Images from the original note were not included. [facility] Acne: After Your Visit Your Care Instructions Acne is a skin problem that shows up as blackheads, whiteheads, and pimples. It most often affects the face, neck, and upper body. Acne occurs when oil and skin cells clog the skin's pores. Acne usually starts during the teen years and often lasts into adulthood. Gentle cleansing every day controls most mild acne. If home treatment does not work, your doctor may prescribe creams, antibiotics, or a stronger medicine called isotretinoin. Sometimes control pills help women who havemonthly acne flare-ups. Follow-up care is a thomas part of your treatment and safety. Be sure to make and go to all appointments, and call your doctor if you are having problems. It???s also a good idea to know your test results and keep a list of the medicines you take. How can you care for yourself at home? ?? Gently wash your face 1 or 2 times a day with warm (not hot) water and a mild soap or cleanser. Always rinse well. ?? Use an edap-dzl-ktmkruq lotion or gel that contains benzoyl peroxide. Start with a small amount of 2.5% benzoyl peroxide and increase the strength as needed. Benzoyl peroxide works well for acne, but you may need to use it for up to 2 months before your acne starts to improve. ?? Apply acne cream, lotion, or gel to all the places you get pimples, blackheads, or whiteheads, not just where you have them now. Follow the instructions carefully. If your skin gets too dry and scaly or red and sore, reduce the amount. For the best results, apply medicines as directed. Try not to miss doses. ?? Do not squeeze or pick pimples and blackheads. This can cause infection and scarring. ?? Use only oil-free makeup, sunscreen, and other skin care products that will not clog your pores. ?? Wash your hair every day, and try to keep it off your face and shoulders. Consider pinning it back or cutting it short. When should you call for help? Watch closely for changes in your health, and be sure to contact your doctor if: ?? You have tried home treatment for 6 to 8 weeks and your acne is not better or gets worse. Your doctor may need to add to or change your treatment. ?? Your pimples become large and hard or filled with fluid. ?? Scars form after pimples heal. ?? You feel sad or hopeless, lack energy, or have other signs of depression while you are taking the prescription medicine isotretinoin. ?? You start to have other symptoms, such as facial hair growth in women or bone and muscle pain. Where can you learn more? Visit our health information library at [email or web address] You can also view health information on [employer], your personal patient account. Log in or sign up today. Enter V108 in the search box to learn more about Acne: After Your Visit. ?? [id number] [employer]. Care instructions adapted under license by [facility]. This care instruction is for use with your licensed healthcare professional. If you have questions about a medical condition or this instruction, always ask your healthcare professional. [employer] disclaims any warranty or liability for your use of this information. Content Version: 10.4.607426; Current as of: August 25, 2013 documented in this encounter Progress Notes * Efra Frazier MD - 04/17/2015 4:35 PM EST Problems: 1. Acne vulgaris. 2. Painful mole, left temporal scalp. Amisha is a 15-year-old girl who comes in today with her mother, Alee. She has had a problem with acne for the last three to four years. She has tried all the dfpf-rox-kkpunqx products without benefit. It involves her face primarily, but also a little bit on her chest and upper back. She also has a mole that has been growing and is sore when she hits it with her comb. The patient is enjoying the [employer] as a freshman. She lives in [place], [place]. Physical examination reveals a compound versus intradermal, flesh toned, dome shaped, 7 mm in diameter on the left temporal scalp. She has mild superficial and mild comedonal acne widely over her forehead, over her central cheeks and face, and a little bit also on the upper chest and back. Assessment and Plan: 1. Acne vulgaris, mild inflammatory and comedonal, facial, chest, and back. a. Today I recommended that she begin clindamycin 1% solution to apply q.a.m. to face and b.i.d. to chest and back; 60 mL dispensed with five refills. b. I recommended the patient also begin tretinoin 0.025% cream to apply sparingly to face at bedtime one half hour after washing; do not apply to chest or back. c. May continue with Clearasil with salicylic acid as facial wash. If she experiences too much irritation from tretinoin, I would recommend that she stop the Clearasil and just use mild Dove soap. 2. Nevus, irritated, symptomatic, left temporal scalp. a. After obtaining informed patient consent, the site was anesthetized and removed with shave biopsy. b. Base was electrodesiccated. c. Triple antibiotic ointment and Band-Aid placed. Wound care instructions and supplies given. d. Return to clinic in two months for repeat check on the acne vulgaris. COPY: Betty Nascimento A.P.R.N. documented in this encounter Plan of Treatment Not on file documented as of this encounter Visit Diagnoses Diagnosis Acne vulgaris Other acne Nevus Benign neoplasm of skin, site unspecified documented in this encounter Care Teams Mud Analysis Operator Relationship Specialty Start Date End Date Lisa [place] [address] PCP - General 05/08/10 04/14/17 documented as of this encounter
--- OUTSIDE RECORDS SUMMARY | 2024-03-15 21:32 | XMS_ITS | Encounter Summary ---
Author Organization [facility] [place] [address] Care Team Providers Care Announcer Name Role Phone Jax Mcfarland MD Primary Care Provider [phone] Encounter Details Date Type Department Care Team (Late st Contact Info) Description 07/09/2021 Orders Only Occupational Medicine at [facility] [place] [address] Fidelia Orozco, [facility] [place] [address] Social History Tobacco Use Types Packs/Day Years Used Date Smoking Tobacco: Never Smokeless Tobacco: Never Sex and Gender Information Value Date Recorded Sex Assigned at Not on file Gender Identity Not on file Sexual Orientation Not on file documented as of this encounter Plan of Treatment Not on file documented as of this encounter Procedures Procedure Name Priority Date/Time Associated Diagnosis Comments MEASLES (RUBEOLA) ANTIBODY, IGG Routine 07/09/2021 11:16 AM EST documented in this encounter Results * Measles (Rubeola) Antibody, IgG (07/09/2021 11:16 AM EST) Rubeola Antibody IgG Pos Pos [facility] Comment:Expected Values: A N egative result indicates non-immunity. Blood Venous Draw / Unknown 07/09/2021 11:16 AM EST 07/10/2021 6:22 AM EST Narrative Resulting Agency Comment Spec In Lab Fidelia T Ernesto PATENTED HOGSHEAD ASSEMBLER IMMUNOLOGY ORDERABLE S Performing Organization Address City/State/[facility] Co de Phone Number [facility] [place] [address] documented in this encounter Visit Diagnoses Not on filedocumented in this encounter Care Teams Announcer Relationship Specialty Start Date End Date Jax Mcfarland MD [address] [place] [facility] [address] PCP - General Pediatrics 09/02/18 10/29/21 documented as of this encounter
--- OUTSIDE RECORDS SUMMARY | 2024-03-15 21:32 | XMS_ITS | Encounter Summary ---
[place] [address] Care Team Providers Care Identification Clerk Name Role Phone Betty Nascimento APRN Primary Care Provider [phone] Encounter Details Date Type Department Care Team (Late st Contact Info) Description 08/04/2017 Refill Dermatology at [address] [phone] Marta Yee, FISHER TROT LINE Social History Tobacco Use Types Packs/Day Years [...] on filedocumented in this encounter Care Teams Identification Clerk Relationship Specialty Start Date End Date Betty Nascimento [place] [address] PCP - General Pediatrics 04/15/17 09/01/18 documented as of this encounter
--- OUTSIDE RECORDS SUMMARY | 2024-03-15 21:33 | XMS_ITS | Encounter Summary ---
Author Organization [facility] Address [address] [place] [address] Care Team Providers Care Weblogic Administrator Name Role Phone Azam Betty Jyoti TOOL COORDINATOR Primary Care Provider Encounter Details Date Type Department Care Team (Late st Contact Info) Description 07/10/2022 Lab Requisition [facility] Pathology & Laboratory Medicine - [address] [address] Outr Resulting Lab, Provider Social History Tobacco Use Types Packs/Day Years Used Date Smoking Tobacco: Never Assessed Interpersonal Safety Answer Date Record ed Physically Hurt Never 09/06/2020 Verbally Threaten Not on file 09/06/2020 Sex and Gender Information Value Date Recorded Sex Assigned at Not on file Gender Identity Not on file Sexual Orientation Not on file documented as of this encounter Plan of Treatment Not on file documented as of this encounter Procedures Procedure Name Priority Date/Time Associated Diagnosis Comments HEPATITIS C AB W REFLEX TO HCV RNA BY PCR Routine 07/10/2022 12:34 EST documented in this encounter Results * HEPATITIS C AB W REFLEX TO HCV RNA BY PCR (07/10/2022 12:34 EST) Hep C Antibody Negative Negative 07/11/2022 9:54 EST [facility] Blood VENOUS BLOOD / Unknown 07/10/2022 12:34 EST 07/10/2022 22:41 EST Provider Outr Resulting Lab CHEMISTRY & BLOOD GAS ORDERABLES [facility] [address] [place] [address] documented in this encounter Visit Diagnoses Not on filedocumented in this encounter Care Teams Weblogic Administrator Relationship Specialty Start Date End Date Betty Nascimento, TOOL COORDINATOR [address] [place] [address] PCP - General 08/14/20 documented as of this encounter
--- OUTSIDE RECORDS SUMMARY | 2024-03-15 21:33 | XMS_ITS | Referral Summary ---
Author Organization [facility] Address [address] [place] [address] Care Team Providers Care Metal Riveter Name Role Phone Azam Betty Montes WOOD PANEL INSPECTOR Primary Care Provider [phone] Social History Tobacco Use Types Packs/Day Years Used Date Smoking Tobacco: Never Assessed Interpersonal Safety Answer Date Record ed Physically Hurt Never 09/06/2020 Verbally Threaten Not on file 09/06/2020 Sex and Gender Information Value Date Recorded Sex Assigned at Not on file Gender Identity Not on file Sexual Orientation Not on file Plan of Treatment Not on file Procedures Procedure Name Priority Date/Time Associated Diagnosis Comments HEPATITIS C AB W REFLEX TO HCV RNA BY PCR Routine 07/10/2022 12:34 EST from Last 3 Months or Most Recently Relevant to Health Maintenance Results * HEPATITIS C AB W REFLEX TO HCV RNA BY PCR (07/10/2022 12:34 EST) Hep C Antibody Negative Negative 07/11/2022 9:54 EST [facility] Blood VENOUS BLOOD / Unknown 07/10/2022 12:34 EST 07/10/2022 22:41 EST Provider Outr Resulting Lab CHEMISTRY & BLOOD GAS ORDERABLES [facility] [address] [place] [address] from Last 3 Months or Most Recently Relevant to Health Maintenance Care Teams Metal Riveter Relationship Specialty Start Date End Date Betty Nascimento WOOD PANEL INSPECTOR [address] [place] [place] [address] PCP - General 08/14/20
--- OUTSIDE RECORDS SUMMARY | 2024-03-15 21:33 | XMS_ITS | Encounter Summary ---
Author Organization [facility] Address [address] [place] [address] Care Team Providers Care Territory Manager Name Role Phone Azam Betty Jyoti CLINICAL LABORATORY TECHNICIAN Primary Care Provider Encounter Details Date Type Department Care Team (Late st Contact Info) Description 03/26/2023 Lab Requisition [facility] Pathology & Laboratory Medicine - [facility] [address] [place], [place] [address] Outr Resulting Lab, Provider Social History Tobacco [...] Procedure Name Priority Date/Time Associated Diagnosis Comments HEMOGLOBIN S SCREEN Routine 03/25/2023 1 6:52 EDT documented in this encounter Results * HEMOGLOBIN S SCREEN (03/25/2023 16:52 EDT) Sickle Cell Prep Negative Negative 03/27/2023 14:23 EDT [facility] Blood VENOUS BLOOD / Unknown 03/25/2023 16:52 EDT 03/26/2023 17:06 EDT Provider Outr Resulting Lab HEMATOLOGY & PF4 ORDERABLES [facility] [address] [place] [address] documented in this encounter Visit Diagnoses Not on filedocumented in this encounter Care Teams Territory Manager Relationship Specialty Start Date End Date Betty Nascimento, CLINICAL LABORATORY TECHNICIAN [address] [place] [address] PCP - General 08/14/20 documented as of this encounter
--- OUTSIDE RECORDS SUMMARY | 2024-03-15 21:33 | XMS_ITS | Clinical Summary ---
Author Organization [facility] Address [address] [place] [id number] Care Team Providers Care Transplant Surgeon Name Role Phone Betty Nascimento TRIMMER SORTER Primary Care Provider [phone] Social History Tobacco Use Types Packs/Day Years Used Date Smoking Tobacco: Never Assessed Interpersonal Safety Answer Date Record ed Physically Hurt Never 09/06/2020 Verbally Threaten Not on file 09/06/2020 Sex and Gender Information Value Date Recorded Sex Assigned at Not on file Gender Identity Not on file Sexual Orientation Not on file Plan of Treatment Health Maintenance Due Date Last Done Comments Hepatitis B Vaccine (1 of 3 - 19+ 3-dose series) 01/09 COVID-19 Vaccine ( season) 2023 Hepatitis C Screen Completed 07/10/2022 Procedures Procedure Name Priority Date/Time Associated Diagnosis Comments HEPATITIS C AB W REFLEX TO HCV RNA BY PCR Routine 07/10/2022 12:34 EST from Last 3 Months or Most Recently Relevant to Health Maintenance Results * HEPATITIS C AB W REFLEX TO HCV RNA BY PCR (07/10/2022 12:34 EST) Hep C Antibody Negative Negative 07/11/2022 9:54 EST [facility] Blood VENOUS BLOOD / Unknown 07/10/2022 12:34 EST 07/10/2022 22:41 EST Provider Outr Resulting Lab CHEMISTRY & BLOOD GAS ORDERABLES [facility] [address] [place] [address] from Last 3 Months or Most Recently Relevant to Health Maintenance Care Teams Transplant Surgeon Relationship Specialty Start Date End Date Betty Nascimento, TRIMMER SORTER [address] [place] [address] PCP - General 08/14/20
--- OUTSIDE RECORDS SUMMARY | 2024-03-15 21:33 | XMS_ITS | Encounter Summary ---
Author Organization [facility] Address [address] [place] [address] Care Team Providers Care Flat Locker Name Role Phone Betty Nascimento FREIGHT FLAGMAN Primary Care Provider [phone] Encounter Details Date Type Department Care Team (Late st Contact Info) Description 10/28/2023 Lab Requisition [facility] Pathology & Laboratory Medicine - [facility] [address] [place] [address] Yvonne Callahan MD [address] [place] [address],[address] [phone] Encounter for other general examination Social History Tobacco Use Types Packs/Day Years [...] Procedure Name Priority Date/Time Associated Diagnosis Comments PAP TEST Today 10/27/2023 14:45 EDT Encounter for other general examination documented in this encounter Results * PAP TEST (10/27/2023 14:45 EDT) Specimens A. Cervix and/or Endocervix , ThinPrep Imaging System with Manual Evaluation 11/03/2023 15:[address] [facility] Specimen Adequacy Satisfactory for Evaluation - transformation zone component present 11/03/2023 15:[address] [facility] General Categorization Negative for intraepithelial lesion or malignancy 11/03/2023 15:[address] [facility] Descriptive Diagnosis Reactive cellular changes associated with inflammation present (includes repair). Fungal organisms present morphologically consistent with Aislinn species. 11/03/2023 15:[address] [facility] Attestation By the signature below, the attending physician certifies that they have personally conducted a gross and/or microscopic examination of the described specimens and rendered or confirmed the above diagnosis. 11/03/2023 15:[address] [facility] at 1520 Clinical History SEE BELOW 11/03/19 15:[address] [facility] Performing Lab [facility] 11/03/2023 15:[address] [facility] Scanned Images 11/03/2023 15:[address] [facility] Pap Test CERVIX UTERI STRUCTURE / Unknown 10/27/2023 14:45 EDT 10/28/2023 13:05 EDT Yvonne Callahan MD PATHOLOGY ORDERABLES [facility] [address] [place], [place] [id number] documented in this encounter Visit Diagnoses Diagnosis Encounter for other general examination documented in this encounter Care Teams Flat Locker Relationship Specialty Start Date End Date Betty Nascimento, BIANCA [address] [place] [address] PCP - General 08/14/20 documented as of this encounter
--- OUTSIDE RECORDS SUMMARY | 2024-03-15 21:33 | XMS_ITS | Encounter Summary ---
Author Organization [facility] Address [address] [place] [address] Care Team Providers Care Nuisance Wildlife Trapper Name Role Phone Azam Betty Jyoti FOWL BLOOD TESTER Primary Care Provider Encounter Details Date Type Department Care Team (Late st Contact Info) Description 07/10/2022 Lab Requisition [facility] Pathology & Laboratory Medicine - [facility] [address] [place] [address] Outr Resulting Lab, Provider Social History Tobacco [...] Procedure Name Priority Date/Time Associated Diagnosis Comments HIV 1/2 ANTIGEN AND ANTIBODY, 4TH GENERATION Routine 07/10/2022 12:34 EST documented in this encounter Results * HIV 1/2 ANTIGEN AND ANTIBODY, 4TH GENERATION (07/10/2022 12:34 EST) HIV 1 and 2 Antibody/p24 Antigen, 4th Generation Negative Negative 07/11/2022 10:09 EST [facility] Comment:If acute HIV-1 infec tion is suspected in a high risk patient, submit plasma specimen for HIV-1 RNA quantitation test. Blood VENOUS BLOOD / Unknown 07/10/2022 12:34 EST 07/10/2022 22:41 EST Narrative [facility] - 07/11/2022 10:09 EST Fourth Generation assay performed on the Siemens Centaur XPT. Provider Outr Resulting Lab IMMUNOLOGY A ND SEROLOGY ORDERABLES [facility] [address] [place] [address] documented in this encounter Visit Diagnoses Not on filedocumented in this encounter Care Teams Nuisance Wildlife Trapper Relationship Specialty Start Date End Date Betty Nascimento, FOWL BLOOD TESTER [address] [place], [place] [id number] PCP - General 08/14/20 documented as of this encounter
--- OUTSIDE RECORDS SUMMARY | 2024-03-15 21:33 | XMS_ITS | Encounter Summary ---
Author Organization [facility] Address [address] [place] [address] Care Team Providers Care Filament Cutter Name Role Phone Betty Nascimento Jyoti JOINERY SETTER OUT Primary Care Provider Encounter Details Date Type Department Care Team (Late st Contact Info) Description 11/14/2021 Lab Requisition [facility] Pathology & Laboratory Medicine - [facility] [address] [place] [address] Outr Resulting Lab, Provider Social History Tobacco [...] Procedure Name Priority Date/Time Associated Diagnosis Comments CHLAMYDIA/N. GONORRHOEAE AMPLIFIED NUCLEIC ACID Routine 11/13/2021 16:00 EDT documented in this encounter Results * CHLAMYDIA/N. GONORRHOEAE AMPLIFIED RNA (11/13/2021 16:00 EDT) Neisseria gonorrhoeae Result Negative Negative 11/15/2021 14:17 EDT [facility] Chlamydia trachomatis Result Negative Negative 11/15/2021 14:17 EDT [facility] Swab ENTIRE ENDOCERVIX / Unknown 11/13/2021 16:00 EDT 11/14/2021 17:04 EDT Provider Outr Resulting Lab MICROBIOLOGY - GENERAL ORDERABLES [facility] [address] [place] [address] documented in this encounter Visit Diagnoses Not on filedocumented in this encounter Care Teams Filament Cutter Relationship Specialty Start Date End Date Betty Nascimento, JOINERY SETTER OUT [address] [place] [address] PCP - General 08/14/20 documented as of this encounter
--- OUTSIDE RECORDS SUMMARY | 2024-03-15 21:33 | XMS_ITS | Encounter Summary ---
Author Organization [facility] Address [address] [place] [address] Care Team Providers Care Parts Facilitator Name Role Phone Betty Nascimento BARREL STAVE INSPECTOR Primary Care Provider Encounter Details Date Type Department Care Team (Late st Contact Info) Description 09/06/2020 Lab Requisition [facility] Pathology & Laboratory Medicine - [facility] [address] [place] [address] Lazaro Bourgeois MD [address] [place] [address] [place] [id number] Encounter for other general examination Social History [...] Procedure Name Priority Date/Time Associated Diagnosis Comments SURGICAL PATHOLOGY Today 09/06/2020 7: 45 EDT Encounter for other general examination documented in this encounter Results * SURGICAL PATHOLOGY (09/06/2020 7:45 EDT) Final Diagnosis A. APPENDIX, APPENDECTOMY: - Appendix with no specific pathologic features. - See comment. 09/13/2020 19:17 T [facility] Diagnosis Comment The entire appendix is submitted for histologic review. 09/13/2020 19:17 T [facility] Attestation By the signature below, the attending physician certifies that they have 1) personally conducted a gross and/or microscopic examination of the described specimen(s), and/or personally interpreted the results of laboratory testing of the described specimen(s), and 2) personally rendered or confirmed the above diagnosis. 09/13/2020 19:17 [facility] at 1917 Clinical History Acute appendicitis 09/13/2020 19:17 [facility] Gross Description A. Received in formalin labelled with proper patient identification (initials G, H) and appendix is an intact vermiform appendix (7.7 cm in length by 0.6 cm in diameter). The proximal base margin is inked. The serosa is spence-rodriguez with prominent vasculature. The cut surfaces show a dilated lumen filled with fecal material. The average wall thickness of 0.3 cm. A discernible perforation site is not identified. The proximal base margin, en face, half of the longitudinally bisected tip and 2 cross sections are submitted in A1. The remainder of the appendiceal tissue is entirely submitted in blocks A2 through A7 with block A2 representing the inked resection margin, en face and the remaining half of the longitudinally bisected. NHAN CAMACHO(ASCP) 09/07/2020 10:28 NAHN COLLINS(ASCP) 09/12/2020 18:39 09/13/2020 19:17 T [facility] Performing Lab [facility] 09/13/2020 19:17 [facility] Scanned Images 09/13/2020 19:17 [facility] Tissue ENTIRE APPENDIX / Unknown 09/06/2020 7:45 EDT 09/06/2020 16:16 EDT Lazaro Bourgeois MD PATHOLOGY ORDERA [place] [facility] [address] [place] [address] documented in this encounter Visit Diagnoses Diagnosis Encounter for other general examination documented in this encounter Care Teams Parts Facilitator Relationship Specialty Start Date End Date Betty Nascimento, BIANCA [address] [place] [address] PCP - General 08/14/20 documented as of this encounter
--- NOTE | 2024-03-15 21:45 | DI.RAD_ITS ---
Exam(s) XR FOOT RT LIMITED EXAM: XR FOOT RT LIMITED CLINICAL HISTORY: sore spot on heel, stepped on glass. r/o FB. TECHNIQUE: 2D digital imaging was performed. Three views. COMPARISON: No exams were available for comparison FINDINGS: BONES: No acute fracture is present. No bony destructive lesion is seen. Small plantar calcaneal spu r. Ossicle posterior to the talus. JOINTS: No dislocation present. SOFT TISSUE: Normal. No radiopaque foreign body identified. No abnormal soft tissue air. IMPRESSION: No visible foreign body. DATA REPOSITORY: RADIATION DOSE DELIVERED:
--- NOTE | 2024-03-15 21:56 | W.ED.GENAD ---
Discharge Plan Disposition Patient Disposition: Home Condition: Good Discharge Details Clinical Impression: Foot pain, right Primary Care Provider: Parag Yin ED Provider: Jill Marroquin Home Meds and New Rx's Prescriptions: No Action fluconazole 150 mg tablet 150 mg PO ONCE Qty: 1 2RF Rx Instructions: as a single dose Mirena 20 mcg/24 hours (5 yrs) 52 mg intrauterine device 1 device IY ONCE Qty: 1 0RF metronidazole 0.75 % (37.5mg/5 gram) gel 5 g vaginal .COMPLEX Qty: 70 4RF Rx Instructions: 5 grams vaginally twice weekly; metronidazole 500 mg tablet 500 mg PO Q12H Qty: 14 0RF spironolactone 50 mg tablet 50 mg PO DAILY Qty: 90 3RF Discharge Instructions Additional Instructions: Please follow-up with your primary care provider if you have any concerns and want to be rechecked. There is no evidence of glass or other foreign body on x-ray. Keep your foot clean and dry. Wash daily with antibacterial soap and water. Keep an eye out for signs of infection such as redness, swelling, increasing pain, pus drainage. If you notice any of these, please seek care immediately as it may indicate need for antibiotics. Referrals: Parag Yin DO [Primary Care Provider] - [facility] General Date/Time Provider Initiated Documentation: 03/15/24 20:13. HPI Narrative: Amisha is a 24-year-old female who presents to the emergency department today for evaluation of glass in right foot. She reports that she was walking barefoot tonight at home when she stepped on some small shards of glass. She had her process trainer help her remove the shards, but she feels like there might be some still retained. She has a sore spot just posterior to her right heel. No bleeding. She is able to ambulate without difficulty, though she does admit causes her some discomfort. No history of immunocompromise or trouble healing. Physical exam reassuring. No obvious shards of glass to the naked eye. A piece of tape was used to dislodge any small shards that may be remaining. She does report some improvement in comfort after this was performed, though she does continue to have the sore spot in the back of her heel. +CMS to toes. No bleeding or obvious puncture wounds. History and presentation concerning for retained foreign body in the heel area. X-ray ordered for further evaluation; no foreign body visualized. Likely contusion to the heel after stepping on shards of glass. No foreign bodies were visualized today, exam overall reassuring. Recommend rest, ibuprofen as needed, and monitoring for signs of infection. Patient voices agreement with plan of care Related Data Home Medications ?Medication ?Instructions ?Recorded ?Confirmed levonorgestrel 21 mcg/24 hr (up to 1 device intrauterine ONCE #1 ea 10/14/18 11/27/23 8 years) 52 mg intrauterine device (Mirena) metronidazole 0.75 % (37.5 mg/5 5 g vaginal .COMPLEX #70 grams 10/27/23 11/27/23 gram) vaginal gel metronidazole 500 mg tablet 500 mg PO Q12H #14 tabs 10/27/23 11/27/23 spironolactone 50 mg tablet 50 mg PO DAILY #90 tabs 11/14/23 11/27/23 fluconazole 150 mg tablet 150 mg PO ONCE #1 tab 11/27/23 11/27/23 Previous Rx's ?Medication ?Instructions ?Recorded levonorgestrel 21 mcg/24 hr (up to 1 device intrauterine ONCE #1 ea 10/14/18 8 years) 52 mg intrauterine device (Mirena) metronidazole 0.75 % (37.5 mg/5 5 g vaginal .COMPLEX #70 grams 10/27/23 gram) vaginal gel metronidazole 500 mg tablet 500 mg PO Q12H #14 tabs 10/27/23 spironolactone 50 mg tablet 50 mg PO DAILY #90 tabs 11/14/23 fluconazole 150 mg tablet 150 mg PO ONCE #1 tab 11/27/23 Allergies Allergy/AdvReac Type Severity Reaction Status Date / Time sesame oil Allergy Intermediate Itchy Verified 10/27/23 14:13 mouth/swollen tongue General Stated Complaint: Orthopedic CONG: 4 Review of Systems Narrative: see HPI Exam Const General: cooperative, healthy appearing, comfortable, no acute distress and well developed Nutritional Appearance: average body habitus Orientation: alert and oriented x3 Resp Effort & Inspection: normal respiratory effort and able to speak in complete sentences Extrem Right lower extremity: normal to inspection, full ROM, normal capillary refill and foot Details: no abrasion, no laceration, no foreign bodies (No foreign bodies visualized) and no puncture wound Course Vital Signs Vital signs: Vital Signs Temperature 36.5 C 03/15/24 20:07 Pulse 77 03/15/24 20:07 Respiratory Rate 16 03/15/24 20:07 Blood Pressure 129/92 H 03/15/24 20:07 Pulse Oximetry 98 03/15/24 20:07 Temperature 36.5 C 03/15/24 20:07 Temperature Source Tympanic 03/15/24 20:07 Pulse 77 03/15/24 20:07 Respiratory Rate 16 03/15/24 20:07 Blood Pressure 129/92 H 03/15/24 20:07 Blood Pressure Position Sitting 03/15/24 20:07 Pulse Oximetry 98 03/15/24 20:07 Oxygen Delivery Method Room Air 03/15/24 20:07 Oxygen Flow Rate 0 03/15/24 20:07 Pain Level 6 03/15/24 20:07 Medical Decision Making Quality:SDOH Health Related Social Needs: No Data to Display PFSH All Active Problems (Updated 03/15/24 @ 23:16 by Jill Waite) Foot pain, right (Acute) Vaginal discharge (Acute) Bacterial vaginosis (Acute) 09/2023. BV. 10/27/2023. Rx for recurrent BV: twice weekly Metrogel for 3mo. 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 Nl pelvic u/s with IUD in place. Pt referred to [facility]. Pelvic pain (Acute) P Dyspareunia (Acute) IUD (intrauterine device) in place (Chronic) Mirena IUD inserted 09/03/18 Acne (Acute 04/04/15) mod/severe inflammatroy Constipation (Chronic) [facility] Migraine headache with aura (Acute) Insomnia (Acute) Medical History (Updated 03/15/24 @ 23:16 by Jill Waite) Ingrowing nail, right great toe 11/06/21 chemical matrixectomy Ingrown left big toenail 11/06/21 chemical matrixectomy RLQ abdominal pain 06/2021. Right hemorrhagic cyst while using Mirena IUD for contraception. 08/2021 ovarian cyst resolved. Acute appendicitis (~08/2020) Orthostasis Urinary incontinence Anxiety and depression Syncope Cardio consult at [facility] [place] [place]: normal Holter monitor likely orthostasis related no follow up necessary Febrile convulsion X 1 AGE 19 MOS Contraception management OCPs, 11/2015 Nexplanon, Nexplanon removed and Mirena inserted 09/03/18 Surgical History H/O colonoscopy (~05/01/23) [facility] Anal Fissure Status post appendectomy (~08/2020) History of tonsillectomy (~07/2020) H/O nasal septoplasty (~2020) Family History Mother Diabetes Hypertension Depression Father No problems noted. Other No problems noted. 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 Pets and animals: Yes Pets and animals: cat(s) and dog(s) Do you think of yourself as: straight/heterosexual Current gender identity: female How often do you talk on the phone with friends or family?: three or more times per week Panel score (0-1 are the most socially isolated patients): 1 What type of physical activity do you participate in: walking, weight lifting and resistance training Duration: 30-45 minutes/day Frequency: 3-4 times per week Do you feel safe in your relationship?: Yes Female Reproductive History Menstrual control method: progestin IUCD History History 0 Para Hx # Term Pregnancies Multiple births Hx # Pregnancies Ectopic pregnancies AB induced Hx Number of Living Children AB spontaneous
[2024-03-15 23:20] VITALS: BP 132/78; PULSE 72; RESP 16; TEMP 36.7; O2SAT 99
--- NOTE | 2024-03-15 23:37 | DI.VRAD_ITS ---
PROCEDURE INFORMATION: Exam: XR Right Toe(s) Exam date and time: 03/15/2024 10:12 PM Age: 24 years old Clinical indication: Injury or trauma; Laceration; Right; With foreign body; Injury date: 03/15/24; Injury details: Stepped on glass, R/O fb on heel TECHNIQUE: Imaging protocol: Radiologic exam of the right toes. Views: Minimum 2 views. COMPARISON: No relevant prior studies available. FINDINGS: Bones/joints: Bone mineralization is age-appropriate. There is no evidence of fracture. No evidence of dislocation. There is a protruding osteophyte extending from the posterior aspect of the talus consistent with ankle impingement syndrome. Clinical correlation recommended. The joint spaces are adequately preserved; no significant degenerative narrowing and no bony erosion seen. Soft tissues: No radiopaque foreign body present. There is soft tissue swelling present. IMPRESSION: 1. No acute osseous abnormality. 2. No radiopaque foreign body 3. There is soft tissue swelling present. 4. There is a protruding osteophyte extending from the posterior aspect of the talus consistent with ankle impingement syndrome. Clinical correlation recommended. Dictated and Authenticated by: Foreign Gimenez MD. Ordering:CHRISTIAN Melchor MD
== END 2024-03-15 23:24 | disposition home or self-care (01) ==
PROVIDERS: Emergency Provider Nurse Practitioner Family; PCP Family Medicine
DX: M79.671 Pain in right foot (principal); W25.XXXA Contact with sharp glass, initial encounter
CPT/HCPCS: 99283; 73620

== ENCOUNTER 2024-05-24 13:40 | Outpatient (REF) | payer OTHER, SELFPAY | END 2024-05-24 13:41 | disposition home or self-care (01) | LOC: LBN 13:40 | PROVIDERS: PCP Family Medicine; Visit Provider Nurse Practitioner Family | DX: N76.0 Acute vaginitis (principal) | CPT/HCPCS: 87480; 87510; 87660 ==

== ENCOUNTER 2024-07-06 09:46 | Outpatient (CLI) | payer OTHER, SELFPAY ==
--- NOTE | 2024-07-06 09:15 | DI.RAD_ITS ---
Exam(s) XR THORACIC SPINE COMPLETE EXAM: XR THORACIC SPINE COMPLETE CLINICAL HISTORY: ? compression fracture,upper back pain,stress fx lt foot,m54.9. TECHNIQUE: 2D digital imaging was performed. COMPARISON: No exams were available for comparison FINDINGS: 3 views No evidence of fracture, listhesis, nor significant disc space narrowing. No scoliosis. No abnormal widening of the paraspinal lines. Bone density appears normal. No osseous lesions evident. IMPRESSION: No significant radiographic findings in the thoracic spinal column. DATA REPOSITORY: RADIATION DOSE DELIVERED:
== END 2024-07-06 10:06 ==
LOC: DI 09:47
PROVIDERS: PCP Family Medicine; Visit Provider Family Medicine
DX: M54.9 Dorsalgia, unspecified (principal)
CPT/HCPCS: 72072

== ENCOUNTER 2024-07-12 15:07 | Outpatient (REF) | payer OTHER, SELFPAY | END 2024-07-12 15:08 | disposition home or self-care (01) | LOC: LBN 15:07 | PROVIDERS: PCP Family Medicine; Visit Provider Nurse Practitioner Family | DX: R10.9 Unspecified abdominal pain (principal) | CPT/HCPCS: 87086 ==

== ENCOUNTER 2024-09-13 01:04 | Outpatient (CLI) | payer OTHER, SELFPAY ==
--- NOTE | 2024-09-13 14:26 | DI.RAD_ITS ---
Exam(s) XR FOOT LT COMPLETE EXAM: XR FOOT LT COMPLETE CLINICAL HISTORY: Left foot pain,M79.672. TECHNIQUE: 2D digital imaging was performed. COMPARISON: CR,XR XR FOOT RT LIMITED from 03/15/2024 FINDINGS: 3 views There is no evidence of fracture or diastasis of the Lisfranc joint. Great toe metatarsophalangeal j oint appears unremarkable as do the other articulations of the foot. There is an accessory ossicle o n the medial aspect of the foot adjacent to the navicular tuberosity. No evidence of obvious osseous tarsal coalition. No inferior calcaneal spur. Small enthesophyte not ed on the posterior calcaneus Achilles insertion site. Bone density normal. No osseous lesions. IMPRESSION: Accessory ossicle on the medial aspect of the foot as described above. Similar findings not seen in the opposite-right foot on images of the right foot performed 03/15/2024. DATA REPOSITORY: RADIATION DOSE DELIVERED:
== END 2024-09-13 01:24 ==
LOC: DI 01:04
PROVIDERS: PCP Family Medicine; Visit Provider Podiatrist
DX: M79.672 Pain in left foot (principal)
CPT/HCPCS: 73630

== ENCOUNTER 2024-11-04 21:41 | Outpatient (REF) | payer OTHER, SELFPAY | END 2024-11-04 21:42 | disposition home or self-care (01) | LOC: LBN 21:41 | PROVIDERS: PCP Family Medicine; Visit Provider Physician Assistant Medical | DX: N76.0 Acute vaginitis (principal) | CPT/HCPCS: 87480; 87510; 87660 ==

== ENCOUNTER 2025-04-22 13:55 | Outpatient (REF) | payer OTHER, SELFPAY ==
[2025-04-22 22:42] LABS: HBs Antibody, Quant 948.8 mIU/mL (See Note); Hepatitis B Surface Ab Positive (See Note)
== END 2025-04-22 13:56 | disposition home or self-care (01) ==
LOC: NCHCN 13:55
PROVIDERS: PCP Family Medicine; Visit Provider Family Medicine
DX: Z01.84 Encounter for antibody response examination (principal)
CPT/HCPCS: 86706

== ENCOUNTER 2025-05-17 13:30 | Outpatient (REF) | payer OTHER, SELFPAY | END 2025-05-17 13:31 | disposition home or self-care (01) | LOC: LBN 13:30 | PROVIDERS: PCP Family Medicine; Visit Provider Nurse Practitioner Family | DX: N76.0 Acute vaginitis (principal) | CPT/HCPCS: 87480; 87510; 87660 ==